=== PATIENT | male | born 1930 | race Caucasian/White ===

== ENCOUNTER 2017-01-18 22:55 | Emergency (ER) | payer OTHER, MEDICARE ==
[2017-01-18 23:01] VITALS: RESP 16; TEMP 97.5
--- NOTE | 2017-01-18 23:57 | EDPHY ---
H & P Time Seen by Provider: 01/18/17 23:14 HPI/ROS: Chief complaint: Right wrist pain History of present illness: This is an 86-year-old male who presents to the emergency department for right wrist pain. Patient reports the onset of symptoms this evening. He states they are slowly worsening. Pain is primarily on the top of his wrist. It is uncomfortable to move it. He denies precipitating factors such as trauma. He denies other associated signs or symptoms including no redness, no swelling, no warmth, no fevers. Further no report of abnormal coolness or paresthesias in the hand. 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 No other significant lesions or open wounds noted. Musculoskeletal: There is tenderness over the dorsum of the right wrist. The rest of the wrist including the snuffbox is nontender. The hand and forearm are nontender. He is moving all digits in the right hand without difficulty. Patient has discomfort extending his right wrist both with active and passive range of motion. Patient can actively move his wrist side to side and flex it and I can passively move it side to side and flex it without discomfort. Vascular: Radial pulses 2+. Capillary refill brisk in the digits of the right hand. Neurologic: Sensation intact throughout the right hand. Constitutional: Initial Vital Signs Temperature (C) 36.4 C 01/18/17 22:57 Heart Rate 87 01/18/17 22:57 Respiratory Rate 16 01/18/17 22:57 Blood Pressure 156/64 H 01/18/17 22:57 O2 Sat (%) 96 01/18/17 22:57 O2 Delivery Mode Room Air Allergies/Adverse Reactions: No Known Allergies Allergy (Verified 01/18/17 23:01) Home Medications: Medication Instructions Recorded Aspirin EC [Aspirin EC 81 mg (*)] 81 mg PO DAILY 08/29/16 Bevacizumab [Avastin] 5 mg IV Q14D 08/29/16 Clopidogrel Bisulfate [Plavix (*)] 75 mg PO DAILY 08/29/16 Denosumab [Prolia] 60 mg SQ 08/29/16 Dexlansoprazole [Dexilant] 30 mg PO DAILY 08/29/16 Supplements 08/29/16 Zytega 08/29/16 predniSONE 1 each PO 08/29/16 MDM/Departure - MDM Diagnostics: Imaging Impressions Wrist X-Ray 01/18/17 23:16 Impression: 1. Soft tissue swelling with no acute osseous findings. 2. 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 3. Atherosclerosis. ED Course/Re-evaluation: Patient seen under the supervision of my secondary supervising physician Dr. Dipak Prince. Patient presents to the emergency department for right wrist pain. The hand is neurovascularly intact. X-ray shows some soft tissue swelling with no fracture. This is likely a sprain or strain or contusion, patient is placed in a Velcro splint and referred to Orthopedics. I believe this is unlikely to be an arthropathy such as gout or septic joint given he has good movement in most clement without pain and no other physical exam findings such as erythema, edema or warmth. I have discussed home care with patient. He is given strict return precautions. Patient voiced understanding and agreement with plan. Differential Diagnosis: Included but not limited to contusion, sprain or strain, bony fracture, unlikely arthropathy such as gout or septic joint - Depart Disposition: Home, Routine, Self-Care Clinical Impression: Wrist pain Qualifiers: Laterality: right Qualified Code(s): M25.531 - Pain in right wrist Condition: Good Instructions: Arthralgia (ED) Additional Instructions: Follow-up with orthopedics for continued evaluation and care If symptoms worsen or new symptoms develop including developing redness, swelling, warmth, difficulty moving the wrist, fever or any other signs or symptoms return immediately to the emergency room Referrals: Sepideh Mckeon MD [Primary Care Provider] - As per Instructions Carol Romero MD [Medical Doctor] - As per Instructions
[2017-01-19 00:20] VITALS: BP 138/77; PULSE 68; O2SAT 95
== END 2017-01-19 00:18 | disposition home or self-care (01) ==
DX: M25.531 Pain in right wrist (principal); Z79.82 Long term (current) use of aspirin; Z87.891 Personal history of nicotine dependence

== ENCOUNTER → 2017-11-20 | Outpatient (CLI) | payer OTHER, MEDICARE | LOC: FIMAGING 14:08 | PROVIDERS: ATTEND Family Medicine | DX: R59.0 Localized enlarged lymph nodes (principal) ==

== ENCOUNTER → 2017-12-04 | Outpatient (CLI) | payer OTHER, MEDICARE ==
[~2017-12-04] MED LIST: IOPAMIDOL (ISOVUE-300) 100 ML BTL ONE
== END ==
LOC: FIMAGING 09:23
PROVIDERS: ATTEND Family Medicine
DX: J98.09 Other diseases of bronchus, not elsewhere classified (principal); I51.7 Cardiomegaly; I25.10 Atherosclerotic heart disease of native coronary artery without angina pectoris; K44.9 Diaphragmatic hernia without obstruction or gangrene; E04.1 Nontoxic single thyroid nodule
CPT/HCPCS: 71260; Q9967

== ENCOUNTER 2018-08-27 17:13 | Inpatient (IN) | payer OTHER, MEDICARE ==
[2018-08-27] MEDS ORDERED: NS 1,000 ML IV ONE ×2 (17:55→19:42)
[2018-08-27] MEDS ORDERED: ONDANSETRON 4 MG/2 ML VIAL IVP ONE (17:55)
--- NOTE | 2018-08-27 18:01 | EDPHY ---
H & P Stated Complaint: c/o ongoing exhaustion/weakness 2-3 wks, vomited 1x today Time Seen by Provider: 08/27/18 17:47 HPI/ROS: CHIEF COMPLAINT: Weakness, fatigue, not eating HISTORY OF PRESENT ILLNESS: The patient is an 88-year-old man visiting from [place] with his . He has a history of prostate cancer without metastasis. He they report that he has been exhausted and weak for the last 3-4 weeks. He has been diagnosed with dehydration several times as well as chronic anemia. He reports feeling excessively weak today and that it is even too much effort to eat. He had a single episode of vomiting around 8:00 a.m. This morning that states was food after he tried to eat breakfast. He then went to sleep and slept until now. His tried to get him to eat but he states that he is too tired to eat. The patient denies having any pain. He has been having normal bowel movements. He denies chest pain or shortness of breath although he is slightly hypoxic. He states that he wears oxygen at night but has been wearing it during the day over the last couple of weeks because he has been so tired. No cough or shortness of breath. No headache. No focal weakness. Severity: Moderate Modifying factors: None REVIEW OF SYSTEMS: Constitutional: See HPI denies: chills, fever, recent injury EENTM: denies: blurred vision, double vision, nose congestion Respiratory: denies: cough, shortness of breath Cardiac: denies: chest pain, irregular heart rate, lightheadedness, palpitations Gastrointestinal/Abdominal: See HPI Genitourinary: denies: dysuria, frequency, hematuria, pain Musculoskeletal: denies: joint pain, muscle pain Skin: denies: lesions, rash, jaundice, bruising Neurological: denies: headache, numbness, paresthesia, tingling, dizziness, weakness Hematologic/Lymphatic: denies: blood clots, easy bleeding, easy bruising Immunologic/allergic: denies: HIV/AIDS, transplant 10 systems reviewed and negative except as noted EXAM: GENERAL: Dry, weak HEAD: Atraumatic, normocephalic. EYES: Pupils equal round and reactive to light, extraocular movements intact, sclera anicteric, conjunctiva are normal. ENT: TMs normal, nares patent, oropharynx clear without exudates. Dry mucous membranes NECK: Normal range of motion, supple without lymphadenopathy or JVD. LUNGS: Breath sounds clear to auscultation bilaterally and equal. No wheezes rales or rhonchi. HEART: Regular rate and rhythm without murmurs, rubs or gallops. ABDOMEN: Slightly descended, nontender, normoactive bowel sounds. No guarding , no rebound. No masses appreciated. BACK: No CVA tenderness, no spinal tenderness, step-offs or deformities EXTREMITIES: Normal range of motion, no pitting or edema. No clubbing or cyanosis. NEUROLOGICAL: Cranial nerves II through XII grossly intact. Normal speech, normal gait. 5/5 strength, normal movement in all extremities, normal sensation , normal reflexes PSYCH: Normal mood, normal affect. SKIN: Tenting, no visible rashes or lesions. Source: Patient Exam Limitations: No limitations - Medical/Surgical History Hx Asthma: No Hx Chronic Respiratory Disease: No Hx Diabetes: No Hx Cardiac Disease: Yes Hx Renal Disease: No Hx Cirrhosis: No Hx Alcoholism: No Hx HIV/AIDS: No Hx Splenectomy or Spleen Trauma: No Other PMH: stent x2, hyperlipidemia, anemia, gerd, h-pylori, htn, macular degenration, prostate CA - Family History Significant Family History: No pertinent family hx - Social History Smoking Status: Former smoker Alcohol Use: Sober Drug Use: None Constitutional: Initial Vital Signs Temperature (C) 37.2 C 08/27/18 17:37 Heart Rate 82 08/27/18 17:37 Respiratory Rate 18 08/27/18 17:37 Blood Pressure 135/62 H 08/27/18 17:37 O2 Sat (%) 91 L 08/27/18 17:37 O2 Delivery Mode Nasal Cannula O2 (L/minute) 2 Allergies/Adverse Reactions: No Known Allergies Allergy (Verified 08/27/18 17:42) Home Medications: Medication Instructions Recorded Abiraterone Acetate [Zytiga] 1,000 mg PO DAILY 08/27/18 Albuterol [Proventil Inhaler HFA 2 puffs IH Q4 PRN 08/27/18 (*)] Aspirin EC [Aspirin EC 81 mg (*)] 81 mg PO DAILY 08/27/18 Atorvastatin Calcium [Lipitor 40 40 mg PO DAILY 08/27/18 mg (*)] Calcium Carbonate/Vitamin D3 1 each PO DAILY 08/27/18 [Calcium 500 + Vit D Caplet] Cyanocobalamin [Vitamin B12 (*)] 1,000 mcg PO DAILY 08/27/18 Denosumab [Prolia] 60 mg SQ [id number] 08/27/18 Dexlansoprazole [Dexilant] 60 mg PO DAILY 08/27/18 Escitalopram Oxalate [Lexapro] 10 mg PO DAILY 08/27/18 Eszopiclone [Eszopiclone] 3 mg PO HS PRN 08/27/18 Gabapentin [Neurontin 100 MG (*)] 100 mg PO TID 08/27/18 Herbals/Supplements -Info Only 1 ea PO DAILY 08/27/18 Losartan Potassium [Cozaar 50 mg 50 mg PO DAILY 08/27/18 (*)] Zolpidem Tartrate [Ambien 5MG (*)] 10 mg PO HS PRN 08/27/18 guaiFENesin [Mucinex 600 MG (*)] 1,200 mg PO BID 08/27/18 predniSONE [predniSONE] 10 mg PO DAILY 08/27/18 Fluticasone/Vilanterol [Breo 1 puffs IH DAILY 08/28/18 Ellipta 100-25 Mcg INH] Medical Decision Making - Diagnostics EKG Interpretation: An EKG obtained and was read and documented in trace view. Please see trace view for full reading and report. Sinus rhythm, no acute ischemic changes, similar to previous Imaging: Discussed imaging studies w/ cooling machine operator Radiologist ED Course/Re-evaluation: The patient is sleeping comfortably. He is saturating normally on 2 L of oxygen. His sats were 88% on arrival. X-ray is being done. He has not yet provided urinalysis. asked me why he keeps getting dehydrated. She states that this is his 3rd ER visit for dehydration. We discussed his prostate cancer status. She states that he was evaluated within the last 2 months and that his PSA level remains flat and that he had a CT scan of his abdomen that was negative. I suspect that he will require admission for failure to thrive if we do not find other source for his weakness. The patient's x-ray does show some retrocardiac atelectasis. The patient and his states that they have been told about this before. He does not have a fever or cough. He has slightly hypoxic at 88 on room air but is able to get his saturations up with deep breaths. He does not think that he has pneumonia. I will not treat him at this time. 8:30 p.m. I discussed the case with Dr. Torres who will admit the medical service. Differential Diagnosis: Partial list of the Differential diagnosis considered include but were not limited to; pneumonia, dehydration, failure to thrive, anorexia, urinary tract infection and although unlikely based on the history and physical exam, I also considered acute coronary disease, CVA. - Data Points Laboratory Results: Laboratory Results 08/27/18 17:58 08/27/18 17:58 Medications Given: Aspirin Buffered (Aspirin Ec) 81 mg PO DAILY LAURA Stop: 02/24/19 08:59 Last Admin: 08/28/18 09:15 Dose: 81 mg Atorvastatin Calcium (Lipitor) 40 mg PO DAILY LAURA Stop: 02/24/19 08:59 Last Admin: 08/28/18 09:15 Dose: 40 mg Escitalopram Oxalate (Lexapro) 10 mg PO DAILY LAURA Stop: 02/24/19 08:59 Last Admin: 08/28/18 09:15 Dose: 10 mg Guaifenesin (Mucinex) 1,200 mg PO BID LAURA Stop: 02/24/19 08:59 Last Admin: 08/28/18 09:12 Dose: 1,200 mg Sodium Chloride (Ns) 1,000 mls @ 100 mls/hr IV CONT LAURA Stop: 02/23/19 21:14 Last Admin: 08/28/18 09:11 Dose: 1,000 mls Ferric Sodium Gluconate Complex 125 mg/ Sodium Chloride 110 mls @ 110 mls/hr IV DAILY LAURA Stop: 02/24/19 09:59 Last Admin: 08/28/18 11:02 Dose: 110 mls Losartan Potassium (Cozaar) 50 mg PO DAILY LAURA Stop: 02/24/19 08:59 Last Admin: 08/28/18 09:15 Dose: 50 mg Miscellaneous Medication (Dexlansoprazole [Dexilant]) 60 mg PO DAILY LAURA Stop: 02/24/19 08:59 Last Admin: 08/28/18 12:26 Dose: 60 mg Miscellaneous Medication (Fluticasone/Vilanterol [Breo Ellipta 100-25 Mcg Inh]) 1 puffs IH DAILY LAURA Stop: 02/24/19 12:29 Last Admin: 08/28/18 14:14 Dose: 1 puffs Prednisone (Prednisone) 10 mg PO DAILY LAURA Stop: 02/24/19 08:59 Last Admin: 08/28/18 12:26 Dose: 10 mg Discontinued Medications Gabapentin (Neurontin) 100 mg PO TID LAURA Stop: 02/23/19 21:59 Last Admin: 08/28/18 09:17 Dose: Not Given Sodium Chloride (Ns) 1,000 mls @ 0 mls/hr IV EDNOW ONE; Wide Open PRN Reason: Protocol Stop: 08/27/18 17:56 Last Admin: 08/27/18 18:00 Dose: 1,000 mls Sodium Chloride (Ns) 1,000 mls @ 0 mls/hr IV EDNOW ONE; Wide Open PRN Reason: Protocol Stop: 08/27/18 19:43 Last Admin: 08/27/18 19:45 Dose: 1,000 mls Miscellaneous Medication (Abiraterone Acetate [Zytiga]) 1,000 mg PO DAILY LAURA Stop: 02/24/19 08:59 Last Admin: 08/28/18 12:17 Dose: Not Given Miscellaneous Medication (Fluticasone/Vilanterol [Breo Ellipta 200-25 Mcg Inh]) 1 puffs IH DAILY [facility] Stop: 02/24/19 08:59 Last Admin: 08/28/18 09:25 Dose: Not Given Ondansetron HCl (Zofran) 4 mg IVP EDNOW ONE Stop: 08/27/18 17:56 Last Admin: 08/27/18 18:01 Dose: 4 mg Pantoprazole Sodium (Protonix) 40 mg PO DAILY LAURA Stop: 02/24/19 10:29 Last Admin: 08/28/18 12:16 Dose: Not Given Departure - Departure Disposition: [facility] Clinical Impression: Dehydration, Failure to thrive in adult Condition: Fair
--- NOTE | 2018-08-27 18:06 | CPEKG ---
Test Reason : OPEN Blood Pressure : / mmHG Vent. Rate : 072 BPM Atrial Rate : 073 BPM P-R Int : 147 ms QRS Dur : 084 ms QT Int : 385 ms P-R-T Axes : 049 086 055 degrees QTc Int : 422 ms Sinus rhythm Borderline right axis deviation Confirmed by Kp Marcelo ([id number]) on 08/27/2018 6:06:32 PM Referred By: Confirmed By:Kp Marcelo
[2018-08-27 18:07] LABS: PLATELET COUNT 131 10^3/uL (150-400)
[2018-08-27 18:17] LABS: INR 1.05 (0.83-1.16); PROTIME(PATIENT) 13.9 SEC (12.0-15.0)
[2018-08-27] MEDS ORDERED: ALBUTEROL 60 PUFFS/8 GM MDI IH PRN (21:09)
[2018-08-27] MEDS ORDERED: ESZOPICLONE 3 MG PO PRN (21:09)
--- NOTE | 2018-08-27 21:35 | GHP ---
DATE OF ADMISSION: 08/27/2018 CHIEF COMPLAINT: Weakness. HISTORY OF PRESENT ILLNESS: This is an 88-year-old man with a history of prostate cancer who present s with weakness. He has had multiple visits to the ED in various places over the past month for this . He tells me that this morning he threw up, he has not had any appetite, he feels very dehydrated. He presents to the ED with labs and physical findings consistent with this. Notably, he was hospita lized about a month ago at [facility] when he was visiting his children in [place]. There they f ound questionable pathology with his gallbladder, though no cholecystectomy was undertaken. He was t old he had gallbladder sludge, though not cholecystitis. He is unsure if he had a HIDA scan. Since then, he has been to the emergency department 2 times in [place] for dehydration. He has received hydr ation there and been sent home. He saw Dr. Downey, his oncologist, recently. He was told that his cancer is under control. PAST MEDICAL/SURGICAL HISTORY: 1. Prostate cancer. 2. Low-grade leukemia. 3. Coronary artery disease, status post PCI. MEDICATIONS: Please see medication reconciliation. ALLERGIES: No known drug allergies. SOCIAL HISTORY: He lives in [place]. He is accompanied by his . FAMILY HISTORY: Reviewed and noncontributory. REVIEW OF SYSTEMS: A 10-point review of systems is conducted and is negative except per HPI. PHYSICAL EXAM: VITAL SIGNS: Blood pressure 124/69, heart rate 69, respiration rate 18, satting 97% on 2 L, temperature is 37.2. GENERAL: The patient is a pleasant man, who appears tired, but otherwi se, in no acute distress. HEENT: Exam shows him to be normocephalic, atraumatic. CARDIOVASCULAR: Exam shows a regular rate and rhythm. There are no murmurs, rubs, or gallops. PULMONARY: Exam show s lungs are clear to auscultation bilaterally. ABDOMEN: Exam is soft. He is mildly diffusely tende r to palpation. There is no clear Lugo sign. SKIN: Exam shows no rash. : Exam shows no Lacy . NEUROLOGIC: Exam shows him to be alert and oriented x3. He is moving all extremities. PSYCHIATR IC: Exam shows a normal mood and affect. LABS: White count is 10, hemoglobin is 10.8, platelets are 131. INR is 1.0. Lactate is 1.0, creati nine is 1.6, BUN is 25, alk phos is 134, bilirubin is 0.8. Urinalysis is negative. DATA: 1. Discussed with Dr. Marcelo, will admit to med/surg. 2. I personally viewed and interpreted his chest x-ray. This shows what is likely atelectasis. I personally viewed and interpreted his EKG. This shows sinus rhythm. There is nothing acutely isch emic. IMPRESSION AND PLAN: 1. Weakness/dehydration: Clinically, he is dehydrated. We will provide him IV hydration and follow his symptoms. We will look for a cause as below. 2. Acute kidney injury: This is likely pre renal. We will recheck his creatinine in the morning. 3. Concern for gallbladder pathology: He reports abnormal imaging studies at [facility], though h e did not receive a cholecystectomy. He has a mildly elevated alkaline phosphatase. At this point, we will check an ultrasound to rule out acute cholecystitis, which I doubt. We will also check a HID A scan to look for chronic cholecystitis. This may be the precipitant of his recurrent weakness and dehydration. He did have an episode of emesis this morning as well. 4. Left leg edema: He reports that this is chronic. He had an ultrasound at [facility], which wa s negative. 5. His will try to bring in a CAT scan from [facility]. If he has not had one, I think it is reasonable to obtain one here. 6. We will attempt to obtain his records from [facility]. 7. Coronary artery disease: He is not having any chest pain. We will continue his aspirin and stat in. 8. Code status: He would like to be full code/full tube, though he does not want heroic measures. 9. Venous thromboembolism risk: He is moderate to high, although given possible procedures, we will hold prophylaxis for now. /[id number]/MODL
[2018-08-27] MEDS: NS 1,000 ML IV SCH (23:21)
[2018-08-27] MEDS: GABAPENTIN 100 MG CAP PO SCH (23:21)
[2018-08-28 04:53] LABS: PLATELET COUNT 103 10^3/uL (150-400)
[2018-08-28] MEDS ORDERED: ASPIRIN EC 81 MG TAB PO SCH (09:00)
[2018-08-28] MEDS ORDERED: VILANTEROL IH SCH (09:00)
[2018-08-28] MEDS ORDERED: FLUTICASONE IH SCH (09:00)
[2018-08-28] MEDS ORDERED: NON-FORMULARY NEW DRUG (Abiraterone Acetate [Zytiga] 1,000 MG) PO SCH (09:00)
[2018-08-28] MEDS: NS 1,000 ML IV SCH (09:11)
[2018-08-28] MEDS: guaiFENesin 600 MG TAB.ER PO SCH ×2 (09:12→21:50)
[2018-08-28] MEDS: ESCITALOPRAM OXALATE 10 MG TAB PO SCH (09:15)
[2018-08-28] MEDS: ATORVASTATIN CALCIUM 40 MG TAB PO SCH (09:15)
[2018-08-28] MEDS: LOSARTAN POTASSIUM 50 MG TAB PO SCH (09:15)
[2018-08-28] MEDS: GABAPENTIN 100 MG CAP PO SCH (09:17)
--- NOTE | 2018-08-28 09:20 | HOSPPROG ---
Hospitalist Progress Note Assessment/Plan: [facility] Patient Name: JON SADLER Rpt#: [id number] Unit Number: [id number] Attending/ER Physician: Soy Torres MD Patient Type: ADM Sushma Adm Date/Source: 08/27/18 EMR Discharge Date: Primary Carrier: MEDICARE OUTPATIENT Patient is an 88 y/o male who has a hx of prostate ca who presented w weakness. He was recently hospitalized at [facility] when he was visiting his children in [place]. He has been to the ER twice in [place] for dehydration. First encounter, chart reviewed. *weakness and dehydration -treated w fluids *acute kidney injury -resolved *anemia, thrombocytopenia -lower than his baseline -will hold asa -has had IV iron in the past -will check iron studies, give IV iron and heme his stools *hx of prostate ca -sees Dr Downey *concerns for gallbladder issues -ultrasound shows nothing acute -HIDA scan ordered to check for chronic cholecystitis, check EF -he has had 3 admissions recently for no appetite and feeling poorly *Left leg edema that is chronic -will evacuate his studies form [facility] *CAD -asa & statin *plan: Mr Sadler continues to feel very poorly, has been unable to eat much, feels exhausted and is anemic. Will f/u with HIDA scan, heme stools, if continues to be anemic, will ask GI to further evaluate. He will require another midnight stay for further w/u of all the above. This will make him IP. Subjective: Jon said he has been feeling weak and tired. Objective: Vital Signs Temp Pulse Resp BP Pulse Ox 37.8 C 71 18 120/53 L 96 08/28/18 08:00 08/28/18 08:00 08/28/18 08:00 08/28/18 09:15 08/28/18 08:00 Laboratory Results 08/28/18 04:37 08/28/18 04:37 08/27/18 08/28/18 08/29/18 05:59 05:59 05:59 Intake Total 688 239 Output Total 200 200 Balance 488 39 PT 13.9 SEC (12.0-15.0) 08/27/18 17:58 INR 1.05 (0.83-1.16) 08/27/18 17:58 - Physical Exam Constitutional: chronically ill appearing, uncomfortable Eyes: PERRL Ears, Nose, Mouth, Throat: hearing normal Cardiovascular: regular rate and rhythym Respiratory: no respiratory distress Gastrointestinal: normoactive bowel sounds, soft, non-tender abdomen Skin: warm, No normal color (pale) Neurologic: AAOx3 Psychiatric: interacting appropriately ICD10 Worksheet Patient Problems: Problems Problem Status Onset Dehydration Acute Failure to thrive in adult Acute
[2018-08-28] MEDS ORDERED: PANTOPRAZOLE SODIUM 40 MG TAB PO SCH (10:30)
--- NOTE | 2018-08-28 10:35 | ASMTCMCOM ---
CM Note CM Note Notes: Pt admitted to hospital for nausea, weakness. Was hospitalizes in [place] last month when visiting his children. Pt normally lives in [place] with his . PUBLICITY CONSULTANT concerned for issues with pt's gallbladder, dc TBD. DC Plan: TBD Date Signed: 08/28/2018 10:34 AM Electronically Signed By:Cassie Colon RN
[2018-08-28] MEDS: SODIUM FERRIC GLUCONAT/SUCROSE 125 MG in NS 100 ML IV SCH (11:02)
[2018-08-28] MEDS: Dexlansoprazole [Dexilant] 60 MG PO SCH (12:26)
[2018-08-28] MEDS: predniSONE 10 MG TAB PO SCH (12:26)
[2018-08-28] MEDS ORDERED: Abiraterone Acetate [Zytiga] PO SCH (14:00)
[2018-08-28] MEDS: Fluticasone/Vilanterol [Breo Ellipta 100-25 Mcg Inh] 1 PUFFS IH SCH (14:14)
[2018-08-28] MEDS: ACETAMINOPHEN 325 MG TAB PO PRN (15:31)
[2018-08-28] MEDS ORDERED: SINCALIDE 5 MCG VIAL IV ONE (15:54)
[2018-08-28] MEDS: PANTOPRAZOLE SODIUM 40 MG VIAL IVP SCH ×2 (17:36→21:50)
[2018-08-28] MEDS: ABIRATERONE 250 MG PO SCH (21:50)
[2018-08-28] MEDS: ZOLPIDEM TARTRATE 5 MG TAB PO PRN (23:55)
[2018-08-29 05:22] LABS: PLATELET COUNT 113 10^3/uL (150-400)
--- NOTE | 2018-08-29 06:56 | PDMN ---
Medical Necessity Medical necessity: Pt meets INPT criteria per MD as of 08/28/18 and MCG Systemic or Infectious Condition GRG (LOS >2 MN for ongoing eval/mgmt of weakness and dehydration treated with IV fluids, GENESIS, anemia, thrombocytopenia, concern for gallbladder issues; hx prostate cancer, CAD).
[2018-08-29] MEDS: Fluticasone/Vilanterol [Breo Ellipta 100-25 Mcg Inh] 1 PUFFS IH SCH (08:54)
[2018-08-29] MEDS: ATORVASTATIN CALCIUM 40 MG TAB PO SCH (09:10)
[2018-08-29] MEDS: LOSARTAN POTASSIUM 50 MG TAB PO SCH (09:13)
[2018-08-29] MEDS: guaiFENesin 600 MG TAB.ER PO SCH ×2 (09:13→21:18)
[2018-08-29] MEDS: ESCITALOPRAM OXALATE 10 MG TAB PO SCH (09:13)
[2018-08-29] MEDS: predniSONE 10 MG TAB PO SCH (09:14)
[2018-08-29] MEDS: ABIRATERONE 250 MG PO SCH ×2 (09:18→22:39)
[2018-08-29] MEDS: Dexlansoprazole [Dexilant] 60 MG PO SCH (09:18)
[2018-08-29] MEDS: PANTOPRAZOLE SODIUM 40 MG VIAL IVP SCH (09:26)
[2018-08-29] MEDS: SODIUM FERRIC GLUCONAT/SUCROSE 125 MG in NS 100 ML IV SCH (09:28)
--- NOTE | 2018-08-29 09:35 | HOSPPROG ---
Hospitalist Progress Note Assessment/Plan: [facility] Patient Name: JON SADLER Rpt#: [id number] Unit Number: [id number] Attending/ER Physician: Soy Torres MD Patient Type: ADM Sushma Adm Date/Source: 08/27/18 EMR Discharge Date: Primary Carrier: MEDICARE OUTPATIENT Patient is an 88 y/o male who has a hx of prostate ca, leukemia who presented w weakness. He was recently hospitalized at [facility] when he was visiting his children in [place]. He has been to the ER twice in [place] for dehydration. After obtaining more information from the patient and his ; he was at [facility] end of July, early August w c/o fatigue, he had an ultrasound there which showed gallbladder thickening w high LFT's concerning of cholecystitis. MRCP done at that time was unrevealing, his LFT's improved. He was noted to be bacteremic w gram negative rods and treated w Zosyn during his hospital stay. He was dc on cipro and Metronidazole for a total of 14 days of treatment. Today the patient shares he has had ongoing diarrhea at home and has been taking Imodium without significant relief. Had a loose stool today but nothing significant. *weakness and dehydration -treated w fluids *fever -w recent treatment of bacteremia, will check now blood cultures -will check ua since he had an e coli bacgeremia *acute kidney injury -resolved *iron deficiency anemia, thrombocytopenia -lower than his baseline -will hold asa -IV iron -GI to see to scope *hx of prostate ca & leukemia -this could be another etiology of his weakness but will first address other issues -sees Dr Downey *concerns for gallbladder issues -ultrasound shows nothing acute -HIDA scan shows nothing acute w a good EF *Left leg edema that is chronic *diarrhea -had a loose stool today -if he has ongoing loose stools, will check for c diff in the setting of recent abx *CAD -asa & statin *plan: to get a scope w Dr Real today, cont IV iron infusion, get a stool sample only if it is very loose and check for c diff, check blood cx now Subjective: Jon is exhausted, has no energy. Objective: Vital Signs Temp Pulse Resp BP Pulse Ox 36.5 C 84 12 157/62 H 94 08/29/18 08:00 08/29/18 08:54 08/29/18 08:54 08/29/18 08:00 08/29/18 08:54 Laboratory Results 08/29/18 04:35 08/29/18 04:35 08/28/18 08/29/18 08/30/18 05:59 05:59 05:59 Intake Total 910 Output Total 300 175 Balance 610 -175 PT 13.9 SEC (12.0-15.0) 08/27/18 17:58 INR 1.05 (0.83-1.16) 08/27/18 17:58 - Physical Exam Constitutional: not in pain, chronically ill appearing Eyes: PERRL Ears, Nose, Mouth, Throat: hearing normal Cardiovascular: regular rate and rhythym Respiratory: no respiratory distress Gastrointestinal: other (large spleen) Skin: warm Musculoskeletal: generalized weakness Neurologic: AAOx3 Psychiatric: interacting appropriately ICD10 Worksheet Patient Problems: Problems Problem Status Onset Dehydration Acute Failure to thrive in adult Acute
[2018-08-29] MEDS: NS 1,000 ML IV SCH (09:43)
[2018-08-29] MEDS: ACETAMINOPHEN 325 MG TAB PO PRN (10:39)
[2018-08-29] MEDS ORDERED: PROPOFOL 200 MG/20 ML VIAL ONE ×2 (12:46)
--- NOTE | 2018-08-29 12:50 | PDANEPAE ---
ANE History of Present Illness failure to thrive, anemia ANE Past Medical History - Cardiovascular History Hx Hypertension: Yes Hx Arrhythmias: No Hx Coronary Artery / Peripheral Vascular Disease: Yes Hx CHF / Valvular Disease: No Hx Palpitations: No Cardiovascular History Comment: CAD s/p stents 3 years ago. As per patient recent evaluation by health care law specialist with no problems. - Pulmonary History Hx COPD: No Hx Asthma/Reactive Airway Disease: No Hx Recent Upper Respiratory Infection: No Hx Oxygen in Use at Home: Yes O2 in Use at Home (L/minute): 2L HS Hx Sleep Apnea: Yes Sleep Apnea Screening Result - Last Documented: Positive - Endocrine History Hx Diabetes: No Hypothyroid: No Hyperthyroid: No Obesity: no - Renal History Hx Renal Disorders: Yes Renal History Comment: Pre-renal ARF on admission. Now resolved. - Liver History Hepatic History Comment: Elevated LFTs on admission. Now resolving. H/o of elevated LFTs, thought to be 2/2 gallbladder pathology. So far negative w/u - Neurological & Psychiatric Hx Hx Neurological and Psychiatric Disorders: No - Cancer History Hx Cancer: Yes Cancer History Comment: h/o Prostate Ca - GI History GERD: mild Hx Gastrointestinal Disorders: Yes Gastrointestinal History Comment: recent N/V, recent diarrhea and bloody and black stool ANE Review of Systems Review of Systems: - Exercise capacity Exercise capacity: >=4 METS ANE Patient History - Allergies Allergies/Adverse Reactions: No Known Allergies Allergy (Verified 08/27/18 17:42) - Home Medications Home Medications: Abiraterone Acetate [Zytiga] 500 mg PO BID 08/27/18 [Last Taken 08/27/18] Albuterol [Proventil Inhaler HFA (*)] 2 puffs IH Q4 PRN 08/27/18 [Last Taken Unknown] Aspirin EC [Aspirin EC 81 mg (*)] 81 mg PO DAILY 08/27/18 [Last Taken 08/27/18] Atorvastatin Calcium [Lipitor 40 mg (*)] 40 mg PO DAILY 08/27/18 [Last Taken ] Calcium Carbonate/Vitamin D3 [Calcium 500 + Vit D Caplet] 1 each PO DAILY [Last Taken Unknown] Cyanocobalamin [Vitamin B12 (*)] 1,000 mcg PO DAILY 08/27/18 [Last Taken ] Denosumab [Prolia] 60 mg SQ [id number] 08/27/18 [Last Taken Unknown] Dexlansoprazole [Dexilant] 60 mg PO DAILY 08/27/18 [Last Taken 08/27/18] Escitalopram Oxalate [Lexapro] 10 mg PO DAILY 08/27/18 [Last Taken Unknown] Eszopiclone [Eszopiclone] 3 mg PO HS PRN 08/27/18 [Last Taken Unknown] Gabapentin [Neurontin 100 MG (*)] 100 mg PO TID 08/27/18 [Last Taken 08/27/18] Herbals/Supplements -Info Only 1 ea PO DAILY 08/27/18 [Last Taken Unknown] Losartan Potassium [Cozaar 50 mg (*)] 50 mg PO DAILY 08/27/18 [Last Taken ] Zolpidem Tartrate [Ambien 5MG (*)] 10 mg PO HS PRN 08/27/18 [Last Taken Unknown] guaiFENesin [Mucinex 600 MG (*)] 1,200 mg PO BID 08/27/18 [Last Taken 08/27/18] predniSONE [predniSONE] 10 mg PO DAILY 08/27/18 [Last Taken 08/27/18] Fluticasone/Vilanterol [Breo Ellipta 100-25 Mcg INH] 1 puffs IH DAILY 08/28/18 [ Last Taken 08/27/18] - NPO status NPO Since - Liquids (Date): 08/29/18 NPO Since - Liquids (Time): 00:00 NPO Since - Solids (Date): 08/29/18 NPO Since - Solids (Time): 00:00 - Anes Hx Anes Hx: no prior problems - Smoking Hx Smoking Status: Former smoker - Alcohol Use Alcohol Use: Sober - Family Anes Hx Family Anes Hx: none ANE Labs/Vital Signs - Labs Result Diagrams: 08/29/18 04:35 08/29/18 04:35 - Vital Signs Blood Pressure: 100/49 Heart Rate: 76 Respiratory Rate: 18 O2 Sat (%): 94 Height: 172.72 cm Weight: 67.132 kg ANE Physical Exam - Airway Neck exam: FROM Mallampati Score: Class 2 Mouth exam: normal dental/mouth exam - Pulmonary Pulmonary: no respiratory distress - Cardiovascular Cardiovascular: regular rate and rhythym - ASA Status ASA Status: III, E ANE Anesthesia Plan Anesthesia Plan: GA with mask Total IV Anesthesia: Yes
[2018-08-29] MEDS ORDERED: ePHEDrine SULFATE 25 MG/5 ML SYR ONE (13:13)
[2018-08-29] MEDS ORDERED: PHENYLEPHRINE HCL 100 MCG/ML SYR ONE (13:13)
--- NOTE | 2018-08-29 13:35 | GIREPORT ---
[facility] - Endoscopy Department Patient Name: Jon Ruiz Procedure Date: 08/29/2018 12:23 PM Patient Type: Inpatient Attending MD/ ER Physician: Mitra Lazar Procedure: Upper GI endoscopy Indications: Iron deficiency anemia due to suspected upper gastrointestinal bleeding Providers: Guillermo Real MD Referring MD: Erica Felton MD Medicines: Propofol per Anesthesia = IV general with spontaneous respirations Complications: No immediate complications. Estimated blood loss: Minimal. Description of Procedure: After obtaining informed consent, the endoscope was passed under direct vision. Throughout the procedure, the patient's blood pressure, pulse, and oxygen saturations were monitored continuously. The Endoscope was intro duced through the mouth, and advanced to the third part of duodenum. The uppe r GI endoscopy was accomplished without difficulty. The patient tolerated th e procedure well. Findings: Multiple small plaques were found in the lower third of the esophagus. Biopsies were taken with a cold forceps for histology. Estimated blood loss was minimal. A few dispersed, small non-bleeding erosions were found in the gastric body. There were no stigmata of recent bleeding. Biopsies were taken with a c old forceps for histology. Estimated blood loss was minimal. Diffuse mildly erythematous mucosa without bleeding was found in the ga stric antrum. Biopsies were taken with a cold forceps for histology. Estimate d blood loss was minimal. Diffuse mild mucosal variance characterized by discoloration and puncta loc white spots was found in the entire duodenum. Biopsies were taken with a cold forceps for histology. Estimated blood loss was minimal. The exam was otherwise without abnormality. Estimated Blood Loss: Estimated blood loss was minimal. Post Op Diagnosis: - Multiple plaques in the lower third of the esophagus. Biopsied. Query dried food that was adherent to mucosa? - Non-bleeding erosive gastropathy. Biopsied. This could be the cause o f his anemia and decreased appetite - Erythematous mucosa in the antrum. Biopsied. - Mucosal variant in the duodenum. Biopsied. - The examination was otherwise normal. Recommendation: - Await pathology results. - My office will call with the pathology result with 5-7 days. If you h ave not heard from my office by 14, do not assume the pathology is rolo l, please call [phone] to get the pathology results. - Use Protonix (pantoprazole) 40 mg PO daily. Take 30-60 minutes before breakfast. Can be BID while in hospital until improving, then down to o nce daily. - Use Zantac (ranitidine) 300 mg PO at bedtime for 4 weeks. If he has increased symptoms when he stops, can restart and taper as symptoms all ow. - Return patient to [facility] for ongoing care. - Thank you for allowing me to help in your patient's care. Do not hesi roblero to call with any questions. Attending Participation: I personally performed the entire procedure. Farhan Avery M.D Bennie Real MD 08/29/2018 1:35:35 PM This report has been signed electronicallyMathew MD Farhan Number of Addenda: 0 Note Initiated On: 08/29/2018 12:23 PM [email or web address]
[2018-08-29] MEDS ORDERED: PHENYLEPHRINE HCL 100 MCG/ML SYR IVP PRN (13:41)
[2018-08-29] MEDS ORDERED: ONDANSETRON 4 MG/2 ML VIAL IVP PRN (13:41)
[2018-08-29] MEDS ORDERED: METOCLOPRAMIDE 10 MG/2 ML VIAL IVP PRN (13:41)
[2018-08-29] MEDS ORDERED: NS 500 ML IV PRN (13:41)
--- NOTE | 2018-08-29 13:41 | POSTANESTH ---
Post Anesthetic Evaluation Cardiovascular Status: Normal, Stable, Similar to Pre-Op Cond, Tx Hyper/Hypo- tension (low BP prior to procedure. most likely hypovolemic) Respiratory Status: Normal, Stable Level of Consciousness/Mental Status: Can Participate in Eval Pain Control: Adequate, Prn Tx Ordered Nausea/Vomiting Control: Adequate, Prn Tx Ordered Complications Possibly Related to Anesthesia: None Noted
[2018-08-29] MEDS ORDERED: PROTOCOL CALCIUM 1 DOSE IV PRN (14:46)
[2018-08-29] MEDS: VANCOMYCIN 125 MG/2.5 ML UDL PO SCH ×2 (15:40→21:18)
--- NOTE | 2018-08-29 16:30 | ASMTCMCOM ---
CM Note CM Note Notes: Asked by pt's RN to speak with pt's who is exhausted by recent admissions and pt's health difficulties. now relieved to have a diagnosis and anticipates pt will become stronger and be able to discharge independently. Therapies ordered today for eval to make sure. aware she can reach out to CM as needed. CM to follow. D/C Plan: Independent pending therapy eval. Date Signed: 08/29/2018 04:29 PM Electronically Signed By:Jaida Fried
--- NOTE | 2018-08-29 16:35 | SOAPPROG ---
SOAP Progress Note Assessment/Plan: Assessment:Plan: see full consult dictated I see he is c diff + -- this could explain a lot of his sx's PO vanco order will decrease PPI to once daily 08/29/18 16:33 Objective: Vital Signs Temp Pulse Resp BP Pulse Ox 36.6 C 72 17 99/49 L 98 08/29/18 15:27 08/29/18 15:27 08/29/18 15:27 08/29/18 15:27 08/29/18 15:27 Laboratory Results 08/29/18 04:35 08/29/18 04:35 08/28/18 08/29/18 08/30/18 05:59 05:59 05:59 Intake Total 910 200 Output Total 300 175 Balance 610 25 PT 13.9 SEC (12.0-15.0) 08/27/18 17:58 INR 1.05 (0.83-1.16) 08/27/18 17:58 ICD10 Worksheet Patient Problems: Problems Problem Status Onset Dehydration Acute Failure to thrive in adult Acute
[2018-08-29] MEDS ORDERED: CALCIUM GLUCONATE 50 ML IV ONE (16:37)
--- NOTE | 2018-08-29 19:15 | GCON ---
DATE OF CONSULTATION: 08/29/2018 REFERRING PHYSICIAN: Anum Soares NP INDICATION FOR CONSULTATION: For anemia related to blood loss, elevated BUN and creatinine, decrease d output, all consistent with upper GI source. HPI: The patient is a pleasant 88-year-old male who has past medical history significant for prostat e cancer, low-grade leukemia, coronary artery disease, who has had some GI symptoms over the last num jamie of months. He has presented to the ER for a number of times with nausea, vomiting, decreased hua etite. Recently, he was hospitalized in [facility] in [place] when he was visiting his children, and the discharge summary suggests that he might have had a cholangitis. At that point, he had an u ltrasound show gallbladder wall thickening, gallbladder sludge, and he had elevated liver function te st. Blood cultures from July 27 grew out E coli that were both sensitive to Cipro and metronida zole. The subsequent blood cultures were negative. He had an MRCP that was ordered that did not rev eal any obstructing lesion in his bile duct and it was felt that he might have passed some sludge or bile stone that caused his cholangitis. He was treated with Cipro and Flagyl for a complete 14-day c ourse after he was initially treated with Zosyn in hospital. I did contact [facility] and I found out that the bacteria was E coli and it was sensitive to both Cipro and metronidazole. He has ross nued to have difficulty at home. He has been to the ER a few times in [place] for dehydration and bladimir use of the continued symptoms, they brought him in for evaluation. Since he has been in the hospital , he was noted to have a somewhat decreased hemoglobin and hematocrit, elevated BUN, creatinine level , and stool occult blood was positive. He has had continued loose black stools multiple times a day, although he denies any fevers, chills, or sweats. He does have an iron-deficiency anemia. His live r enzymes are normal and laboratory data which were reviewed below. So was his sonogram and HIDA sca n. He is now admitted with the above, and I am called to help and evaluate in that regard. PAST MEDICAL/SURGICAL HISTORY: Prostate cancer status post radiation, low-grade leukemia, coronary a rtery disease status post stenting. CURRENT MEDICATIONS: In hospital include Tylenol p.r.n., albuterol 2 puffs q. 4, aspirin 81 mg daily , Lipitor 40 mg daily, calcium gluconate p.r.n., Lexapro 10 mg daily, ferric sodium gluconate 125 mg IV, Mucinex 1200 mg p.o. b.i.d., Cozaar 50 mg daily, Zofran p.r.n., Protonix 40 mg p.o. b.i.d., predn isone 10 mg daily, Ambien 10 mg p.o. q.h.s. ALLERGIES: No known drug allergies. SOCIAL HISTORY: He lives in [place]. His and son are with him. He does not smoke or drink. FAMILY HISTORY: No GI malignancies to his knowledge. REVIEW OF SYSTEMS: A complete review of systems was performed and was negative other than noted in t he HPI. PHYSICAL EXAM: GENERAL: Chronically ill-appearing, elderly male sitting in his bed in no acute dist ress. VITAL SIGNS: His blood pressure is 100/49. Pulse is 76, respirations 18. He is 94% on 4 L n estefany cannula. Temperature 37.0. EYES: Anicteric. SAMUEL, EOMI. MOUTH: No lesions. Moist mucous m embranes. NECK: Supple. Full range of motion. No JVD. BACK: No spine tenderness. No CVA tender ness. LUNGS: Clear. CARDIAC: S1, S2. Regular rate and rhythm. ABDOMEN: Bowel sounds are normal pitch and frequency. ABDOMEN: Soft. Mild epigastric tenderness. No rebound or guarding. EXTREMI TIES: No cyanosis, clubbing, or edema. NEUROLOGIC: Cranial nerves intact, nonfocal. SKIN: No sti gmata of advanced liver disease. LABORATORY DATA: From today, sodium 137, potassium 4.7, chloride 112, bicarb 21, BUN 17, creatinine 1.2, glucose 116, calcium 6.9, ionized calcium 0.98. Iron 17, TIBC 201, iron sat 8, ferritin 195. F rom yesterday, a bilirubin 0.4, AST 17, ALT 28, alkaline phosphatase 90, albumin 2.3, total protein 4 .3. From today, WBC 8.95, hemoglobin 9.3, hematocrit 29.6, platelet count 113. From the , pro t aron 13.9, INR 1.05, PTT 26.3. IMAGING DATA: An abdominal ultrasound performed August 27: Normal sonographic-appearing biliary system, normal gallbladder, no bowel, no wall thickening, no bile duct dilatation, parapelvic cyst, right renal hilum. A HIDA scan performed August 28 was a normal HIDA scan with ejection fraction of 39%. ASSESSMENT: 1. Anemia, likely related to GI blood loss. 2. Elevated BUN, creatinine level. 3. Hemoccult-positive stool. 4. Diarrhea, possibly infectious. 5. Coronary artery disease status post stents. RECOMMENDATIONS: 1. Proceed with EGD for evaluation of presumed upper GI blood loss with gastritis, esophagitis likel y. 2. Follow up laboratories and stool samples. 3. Further recommendations to follow the results of the above and clinical course. This will be a higher risk procedure than normal given the patient's multiple medical issues. I will ask Anesthesia to perform the sedation to make it a safe procedure. Thank you for allowing me to participate in the patient's healthcare. Do not hesitate to call me wit h any questions. /[id number]/MODL
[2018-08-29] MEDS ORDERED: PANTOPRAZOLE SODIUM 40 MG TAB PO SCH (21:00)
[2018-08-29] MEDS: ESZOPICLONE 3 MG PO PRN (22:39)
[2018-08-30] MEDS: VANCOMYCIN 125 MG/2.5 ML UDL PO SCH ×4 (06:30→21:19)
[2018-08-30] MEDS ORDERED: CALCIUM GLUCONATE 50 ML IV ONE (07:23)
[2018-08-30] MEDS: SODIUM FERRIC GLUCONAT/SUCROSE 125 MG in NS 100 ML IV SCH (08:52)
[2018-08-30] MEDS: guaiFENesin 600 MG TAB.ER PO SCH ×2 (08:58→21:18)
[2018-08-30] MEDS: LOSARTAN POTASSIUM 50 MG TAB PO SCH (08:58)
[2018-08-30] MEDS: predniSONE 10 MG TAB PO SCH (08:58)
[2018-08-30] MEDS: ATORVASTATIN CALCIUM 40 MG TAB PO SCH (08:59)
[2018-08-30] MEDS: PANTOPRAZOLE SODIUM 40 MG TAB PO SCH (08:59)
[2018-08-30] MEDS: ABIRATERONE 250 MG PO SCH ×2 (09:03→21:16)
[2018-08-30] MEDS: Fluticasone/Vilanterol [Breo Ellipta 100-25 Mcg Inh] 1 PUFFS IH SCH (09:03)
--- NOTE | 2018-08-30 10:42 | HOSPPROG ---
Hospitalist Progress Note Assessment/Plan: [facility] Patient Name: KEVIN SADLER Rpt#: [id number] Unit Number: [id number] Attending/ER Physician: Soy Torres MD Patient Type: ADM Sushma Adm Date/Source: 08/27/18 EMR Discharge Date: Primary Carrier: MEDICARE OUTPATIENT Patient is an 88 y/o male who has a hx of prostate ca, leukemia who presented w weakness. He was recently hospitalized at [facility] when he was visiting his children in [place]. He has been to the ER twice in [place] for dehydration. After obtaining more information from the patient and his ; he was at [facility] end of July, early August w c/o fatigue, he had an ultrasound there which showed gallbladder thickening w high LFT's concerning of cholecystitis. MRCP done at that time was unrevealing, his LFT's improved. He was noted to be bacteremic w gram negative rods and treated w Zosyn during his hospital stay. He was dc on cipro and Metronidazole for a total of 14 days of treatment. The patient shared he has had ongoing diarrhea at home and has been taking Imodium without significant relief. * c diff colitis -started on oral vancomycin -likely the cause of the below *weakness and dehydration -treated w fluids -still not eating much -alcoholism worker to see *fever -none further -blood cx are pending *hypotension -has been on Losartan, suspect this has made him feel weak at home -I have cut his dose of Losartan in half and would continue this at dc - he can f/u with his PCP *acute kidney injury -resolved *iron deficiency anemia, thrombocytopenia -appreciate Dr Real -no acute bleeding noted -will need to f/u with Dr Farhan hale pending labs -asa on hold -has had 3 days of IV iron -PPI daily *hx of prostate ca & leukemia -reviewed his hx w oncology, likely not cause of the above, he has been recently seen and is stable *hypocalcemia -on IV calcium -will add oral in addition *concerns for gallbladder issues -ultrasound shows nothing acute -HIDA scan shows nothing acute w a good EF *Left leg edema that is chronic *CAD -asa & statin *plan: dietary to see, he will likely need a SNF for strengthening. continue oral calcium w IV. His Losartan dose has been decreased to 25 mg daily from 50 mg, would recommend continuing this at dc. >30 minutes at the bedside and coordinating his care. Family is very involved. Subjective: Kevin is def feeling better, but still feels very weak and tired. Objective: Vital Signs Temp Pulse Resp BP Pulse Ox 36.4 C 76 18 127/57 H 96 08/30/18 07:41 08/30/18 07:41 08/30/18 07:41 08/30/18 07:41 08/30/18 07:41 Laboratory Results 08/30/18 04:30 08/30/18 04:30 08/29/18 08/30/18 08/31/18 05:59 05:59 05:59 Intake Total 910 2723 300 Output Total 300 600 200 Balance 610 2123 100 PT 13.9 SEC (12.0-15.0) 08/27/18 17:58 INR 1.05 (0.83-1.16) 08/27/18 17:58 - Physical Exam Constitutional: not in pain, chronically ill appearing Eyes: PERRL Ears, Nose, Mouth, Throat: hearing normal Cardiovascular: regular rate and rhythym Respiratory: no respiratory distress Gastrointestinal: normoactive bowel sounds Skin: warm Musculoskeletal: generalized weakness Neurologic: AAOx3 Psychiatric: interacting appropriately ICD10 Worksheet Patient Problems: Problems Problem Status Onset Dehydration Acute Failure to thrive in adult Acute
[2018-08-30] MEDS: CALCIUM CARB W/VIT D 500 MG TAB PO SCH ×2 (12:42→21:17)
--- NOTE | 2018-08-30 14:00 | ASMTCMCOM ---
CM Note CM Note Notes: OT and Hospitalist recommending SNF rehab for patient. No notes as yet from PT. Spoke with patient and his . [facility]. Sent referrals to both. Date Signed: 08/30/2018 02:00 PM Electronically Signed By:Elsa Dhillon LCSW
--- NOTE | 2018-08-30 17:59 | SOAPPROG ---
SOAP Progress Note Assessment/Plan: Assessment:Plan: see full consult dictated I see he is c diff + -- this could explain a lot of his sx's PO vanco order will decrease PPI to once daily 08/29/18 16:33 08/30/18 17:57 1) C diff - PO bennett 125 mg 10-14 days, use probiotics when finished 2) anemia - prob partially from blood loss from colitis and erosive gastritis- no need for SB capsule if it improves 3) gastritis - PPI once daily and QHS H2RA - the H2RA only for 4 weeks = ranitidine can be 150mg or 300 mg 4) dispo - to snf to regain strength Subjective: cc - c diff, weakness, anemia pt feeling a bit better with PO vancomycin ate a little more today I expect his appetite will increase as c diff treated Objective: Vital Signs Temp Pulse Resp BP Pulse Ox 36.4 C 81 19 126/67 H 97 08/30/18 15:31 08/30/18 15:31 08/30/18 15:31 08/30/18 15:31 08/30/18 15:31 Laboratory Results 08/30/18 04:30 08/30/18 04:30 08/29/18 08/30/18 08/31/18 05:59 05:59 05:59 Intake Total 910 2723 980 Output Total 300 600 600 Balance 610 2123 380 PT 13.9 SEC (12.0-15.0) 08/27/18 17:58 INR 1.05 (0.83-1.16) 08/27/18 17:58 CTA S1S2 +BS soft nt A+Ox3 Laboratory Tests 08/28/18 08/28/18 08/28/18 04:37 04:37 13:25 Hgb 8.5 L Hct 27.1 L BUN 21 Creatinine 1.3 Stool Occult Bld Scrn POSITIVE H C. difficile Tox (PCR) 08/29/18 08/29/18 08/29/18 04:35 04:35 12:50 Hgb 9.3 L Hct 29.6 L BUN 17 Creatinine 1.2 Stool Occult Bld Scrn NEGATIVE C. difficile Tox (PCR) POSITIVE H 08/30/18 08/30/18 08/30/18 04:30 04:30 17:15 Hgb 8.7 L Hct 27.9 L BUN 18 Creatinine 1.2 Stool Occult Bld Scrn NEGATIVE C. difficile Tox (PCR) ICD10 Worksheet Patient Problems: Problems Problem Status Onset Dehydration Acute Failure to thrive in adult Acute
[2018-08-30] MEDS: ESCITALOPRAM OXALATE 10 MG TAB PO SCH (21:18)
[2018-08-30] MEDS: ESZOPICLONE 3 MG PO PRN (21:21)
[2018-08-31] MEDS: VANCOMYCIN 125 MG/2.5 ML UDL PO SCH ×4 (05:45→20:57)
[2018-08-31] MEDS: ATORVASTATIN CALCIUM 40 MG TAB PO SCH (08:56)
[2018-08-31] MEDS: PANTOPRAZOLE SODIUM 40 MG TAB PO SCH (08:56)
[2018-08-31] MEDS: predniSONE 10 MG TAB PO SCH (08:57)
[2018-08-31] MEDS: CALCIUM CARB W/VIT D 500 MG TAB PO SCH ×2 (08:57→20:57)
[2018-08-31] MEDS: guaiFENesin 600 MG TAB.ER PO SCH ×2 (08:57→20:57)
[2018-08-31] MEDS: LOSARTAN POTASSIUM 50 MG TAB PO SCH (08:57)
[2018-08-31] MEDS: ABIRATERONE 250 MG PO SCH ×2 (09:00→20:58)
[2018-08-31] MEDS: Fluticasone/Vilanterol [Breo Ellipta 100-25 Mcg Inh] 1 PUFFS IH SCH (09:01)
--- NOTE | 2018-08-31 10:31 | SOAPPROG ---
SOAP Progress Note Assessment/Plan: Assessment: 1. C. diff colitis; symptomatically improved albeit still with multiple loose BM 's without blood. 2. LGI bleed secondary to C. diff Plan: 1. SUSIE. 2. Continue po Vanco. 3. Will follow with you. Jorje Crespo MD 08/31/18 10:28 Subjective: CC; C. diff diarrhea. Interval HPI: Patient feeling better with more energy and tolerating po diet albeit still with frequent watery BM's without blood. Objective: Vital Signs Temp Pulse Resp BP Pulse Ox 36.4 C 78 15 146/72 H 95 08/31/18 07:12 08/31/18 07:12 08/31/18 07:12 08/31/18 08:57 08/31/18 07:12 Laboratory Results 08/30/18 04:30 08/31/18 04:32 08/30/18 08/31/18 09/01/18 05:59 05:59 05:59 Intake Total 2723 980 Output Total 600 850 Balance 2123 130 PT 13.9 SEC (12.0-15.0) 08/27/18 17:58 INR 1.05 (0.83-1.16) 08/27/18 17:58 Physical Exam - Physical Exam General Appearance: WD/WN, alert, no apparent distress Respiratory: lungs clear, normal breath sounds Cardiac/Chest: regular rate, rhythm Abdomen: normal bowel sounds, non-tender, soft Skin: normal color, warm/dry Neuro/Psych: alert, normal mood/affect, oriented x 3 ICD10 Worksheet Patient Problems: Problems Problem Status Onset Dehydration Acute Failure to thrive in adult Acute
[2018-08-31] MEDS ORDERED: CALCIUM GLUCONATE 50 ML IV ONE (11:41)
--- NOTE | 2018-08-31 13:22 | HOSPPROG ---
Hospitalist Progress Note Assessment/Plan: Patient is an 88 y/o male who has a hx of prostate ca, leukemia who presented w weakness. He was recently hospitalized at [facility] when he was visiting his children in [place]. He has been to the ER twice in [place] for dehydration. He was noted to be bacteremic w gram negative rods and treated w Zosyn during his hospital stay. He was dc on cipro and Metronidazole for a total of 14 days of treatment. The patient shared he has had ongoing diarrhea at home and has been taking Imodium without significant relief. First encounter , chart reviewed. * c diff colitis -started on oral vancomycin -likely the cause of the below *weakness and dehydration -treated w fluids -still not eating much -buyer planner to see *fever -none further -blood cx NGTD *hypotension -has been on Losartan, suspect this has made him feel weak at home -cut his dose of Losartan in half and would continue this at pr - he can f/u with his PCP *acute kidney injury -resolved *iron deficiency anemia, thrombocytopenia -appreciate Dr Real -no acute bleeding noted -will need to f/u with Dr Real w pending labs -asa on hold -has had 3 days of IV iron -PPI daily *hx of prostate ca & leukemia -likely not cause of the above, he has been recently seen and is stable *hypocalcemia -on IV calcium -oral in addition *concerns for gallbladder issues -ultrasound shows nothing acute -HIDA scan shows nothing acute w a good EF *Left leg edema that is chronic *CAD -asa & statin *plan: SNF for strengthening. continue oral calcium w IV. His Losartan dose has been decreased to 25 mg daily from 50 mg, would recommend continuing this at pr. Family is very involved. Subjective: Asleep, arousable. Not hungry. Feels very tired. Objective: Vital Signs Temp Pulse Resp BP Pulse Ox 36.4 C 78 15 146/72 H 95 08/31/18 07:12 08/31/18 07:12 08/31/18 07:12 08/31/18 08:57 08/31/18 07:12 Laboratory Results 08/30/18 04:30 08/31/18 04:32 08/30/18 08/31/18 09/01/18 05:59 05:59 05:59 Intake Total 2723 980 Output Total 600 850 Balance 2123 130 PT 13.9 SEC (12.0-15.0) 08/27/18 17:58 INR 1.05 (0.83-1.16) 08/27/18 17:58 - Physical Exam Constitutional: appears nourished, chronically ill appearing, cachectic Eyes: PERRL, anicteric sclera, EOMI Ears, Nose, Mouth, Throat: moist mucous membranes, hearing normal, ears appear normal Cardiovascular: No JVD, No tachycardia, No edema Respiratory: no respiratory distress, no rales or rhonchi, reduced air movement Gastrointestinal: distension, No tenderness, No ascites Skin: warm, normal color, No mottled Musculoskeletal: normal joint ROM, no joint effusions, generalized weakness Neurologic: AAOx3 Psychiatric: interacting appropriately, not anxious, not encephalopathic, thought process linear ICD10 Worksheet Patient Problems: Problems Problem Status Onset Dehydration Acute Failure to thrive in adult Acute
[2018-08-31] MEDS: PREPARATION H 51 GM CRTUBE PR PRN ×2 (18:48→23:08)
[2018-08-31] MEDS: ESCITALOPRAM OXALATE 10 MG TAB PO SCH (20:57)
[2018-08-31] MEDS: ESZOPICLONE 3 MG PO PRN (23:07)
[2018-09-01] MEDS ORDERED: LORazepam 0.5 MG TAB PO ONE (01:37)
[2018-09-01] MEDS: ONDANSETRON 4 MG/2 ML VIAL IVP PRN (05:18)
[2018-09-01] MEDS: VANCOMYCIN 125 MG/2.5 ML UDL PO SCH ×4 (05:18→20:18)
--- NOTE | 2018-09-01 09:37 | SOAPPROG ---
SOAP Progress Note Assessment/Plan: Assessment: 1. C. diff colitis; symptomatically about the same, depressed. Still with multiple loose BM's without blood. 2. LGI bleed secondary to C. diff Plan: 1. SUSIE. 2. Continue po Vanco. 3. Will follow with you. Jorje Crespo MD 09/01/18 09:34 Subjective: CC: C. diff colitis. Interval HPI: Patient still weak and having some loose stools. Depressed. Objective: Vital Signs Temp Pulse Resp BP Pulse Ox 36.7 C 86 16 162/74 H 89 L 09/01/18 08:00 09/01/18 08:00 09/01/18 08:00 09/01/18 08:00 09/01/18 08:00 Laboratory Results 08/30/18 04:30 08/31/18 04:32 08/31/18 09/01/18 09/02/18 05:59 05:59 05:59 Intake Total 980 750 900 Output Total 850 400 Balance 130 350 900 PT 13.9 SEC (12.0-15.0) 08/27/18 17:58 INR 1.05 (0.83-1.16) 08/27/18 17:58 Physical Exam - Physical Exam General Appearance: mild distress Respiratory: lungs clear Cardiac/Chest: regular rate, rhythm Abdomen: normal bowel sounds, non-tender, soft Skin: normal color, warm/dry ICD10 Worksheet Patient Problems: Problems Problem Status Onset Dehydration Acute Failure to thrive in adult Acute
[2018-09-01] MEDS: CALCIUM CARB W/VIT D 500 MG TAB PO SCH ×2 (10:47→20:17)
[2018-09-01] MEDS: LOSARTAN POTASSIUM 50 MG TAB PO SCH (10:48)
[2018-09-01] MEDS: predniSONE 10 MG TAB PO SCH (10:49)
[2018-09-01] MEDS: PANTOPRAZOLE SODIUM 40 MG TAB PO SCH (10:49)
[2018-09-01] MEDS: guaiFENesin 600 MG TAB.ER PO SCH ×2 (10:49→20:17)
[2018-09-01] MEDS: ATORVASTATIN CALCIUM 40 MG TAB PO SCH (10:49)
[2018-09-01] MEDS: Fluticasone/Vilanterol [Breo Ellipta 100-25 Mcg Inh] 1 PUFFS IH SCH (10:50)
[2018-09-01] MEDS: ABIRATERONE 250 MG PO SCH ×2 (10:51→20:18)
--- NOTE | 2018-09-01 13:22 | HOSPPROG ---
Addendum entered and electronically signed by Jennifer Meredith NP 09/01/18 13:24 : Will increase vanco to 250mg QID. Original Note: Hospitalist Progress Note Assessment/Plan: Patient is an 88 y/o male who has a hx of prostate ca, leukemia who presented w weakness. He was recently hospitalized at [facility] when he was visiting his children in [place]. He has been to the ER twice in [place] for dehydration. He was noted to be bacteremic w gram negative rods and treated w Zosyn during his hospital stay. He was dc on cipro and Metronidazole for a total of 14 days of treatment. The patient shared he has had ongoing diarrhea at home and has been taking Imodium without significant relief. First encounter , chart reviewed. 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 *fever -none further -blood cx NGTD *hypotension -has been on Losartan, suspect this has made him feel weak at home -cut his dose of Losartan in half and would continue this at dc - he can f/u with his PCP *acute kidney injury -resolved *iron deficiency anemia, thrombocytopenia -no acute bleeding noted -will need to f/u with Dr Farhan hale pending labs -asa on hold -has had 3 days of IV iron -PPI daily *hx of prostate ca & leukemia -likely not cause of the above, he has been recently seen and is stable *hypocalcemia -on IV calcium -oral in addition *concerns for gallbladder issues -ultrasound shows nothing acute -HIDA scan shows nothing acute w a good EF *Left leg edema that is chronic *CAD -asa & statin *plan: SNF for strengthening. requesting a palliative care consult D/W Frankie and Dr Crespo D/W Subjective: Very tired. Not hungry. Frustrated with being ill. Objective: Vital Signs Temp Pulse Resp BP Pulse Ox 36.7 C 93 16 130/58 H 87 L 09/01/18 08:00 09/01/18 11:46 09/01/18 11:46 09/01/18 11:46 09/01/18 11:46 Laboratory Results 08/30/18 04:30 08/31/18 04:32 08/31/18 09/01/18 09/02/18 05:59 05:59 05:59 Intake Total 980 750 900 Output Total 850 400 Balance 130 350 900 PT 13.9 SEC (12.0-15.0) 08/27/18 17:58 INR 1.05 (0.83-1.16) 08/27/18 17:58 - Physical Exam Constitutional: chronically ill appearing, uncomfortable, cachectic Eyes: PERRL, anicteric sclera, EOMI Ears, Nose, Mouth, Throat: moist mucous membranes, hearing normal, ears appear normal Cardiovascular: No JVD, No tachycardia, No edema Respiratory: no respiratory distress, no rales or rhonchi, reduced air movement Gastrointestinal: normoactive bowel sounds, No tenderness, No ascites Skin: warm, normal color, No mottled Musculoskeletal: normal joint ROM, no joint effusions, generalized weakness Neurologic: AAOx3 Psychiatric: not anxious, not encephalopathic, thought process linear ICD10 Worksheet Patient Problems: Problems Problem Status Onset Dehydration Acute Failure to thrive in adult Acute
--- NOTE | 2018-09-01 13:38 | ASMTCMCOM ---
CM Note CM Note Notes: [facility] unable to accept, no bed availability. Updated patient's , she is okay with [facility]. Palliative Care consult placed - Frankie attempted today, unable to meet with patient and will follow-up on Friday. Updated RN. CM to follow. Plan: [facility] Date Signed: 09/01/2018 01:37 PM Electronically Signed By:Kellie Smart RN
[2018-09-01] MEDS: NS 1,000 ML IV SCH (17:15)
[2018-09-01] MEDS: ESCITALOPRAM OXALATE 10 MG TAB PO SCH (20:17)
[2018-09-01] MEDS: PREPARATION H 51 GM CRTUBE PR PRN (20:18)
[2018-09-02] MEDS: VANCOMYCIN 125 MG/2.5 ML UDL PO SCH ×4 (05:16→21:25)
[2018-09-02] MEDS ORDERED: CALCIUM GLUCONATE 50 ML IV ONE (07:16)
[2018-09-02] MEDS: LOSARTAN POTASSIUM 50 MG TAB PO SCH (08:29)
[2018-09-02] MEDS: ATORVASTATIN CALCIUM 40 MG TAB PO SCH (08:31)
[2018-09-02] MEDS: predniSONE 10 MG TAB PO SCH (08:31)
[2018-09-02] MEDS: guaiFENesin 600 MG TAB.ER PO SCH ×2 (08:31→21:24)
[2018-09-02] MEDS: PANTOPRAZOLE SODIUM 40 MG TAB PO SCH (08:31)
[2018-09-02] MEDS: CALCIUM CARB W/VIT D 500 MG TAB PO SCH ×2 (08:31→21:24)
[2018-09-02] MEDS: ACETAMINOPHEN 325 MG TAB PO PRN (08:46)
[2018-09-02] MEDS: ABIRATERONE 250 MG PO SCH ×2 (09:58→21:29)
[2018-09-02] MEDS: Fluticasone/Vilanterol [Breo Ellipta 100-25 Mcg Inh] 1 PUFFS IH SCH (09:58)
[2018-09-02] MEDS: NS 1,000 ML IV SCH (11:27)
--- NOTE | 2018-09-02 11:46 | SOAPPROG ---
SOAP Progress Note Assessment/Plan: Assessment: 1. C. diff colitis; symptomatically improved and mentally brighter today. Plan: 1. SUSIE. 2. Continue po Vanco(now at higher dose). 3. Will follow with you. Jorje Crespo MD 09/02/18 11:43 Subjective: CC: C diff colitis. Interval HPI: Patient with less diarrhea and urgency today, Mood better as well. Objective: Vital Signs Temp Pulse Resp BP Pulse Ox 37.2 C 73 18 113/46 L 95 09/02/18 11:28 09/02/18 11:28 09/02/18 11:28 09/02/18 11:28 09/02/18 11:28 Laboratory Results 09/02/18 10:20 09/02/18 10:20 09/01/18 09/02/18 09/03/18 05:59 05:59 05:59 Intake Total 750 2300 500 Output Total 400 Balance 350 2300 500 PT 13.9 SEC (12.0-15.0) 08/27/18 17:58 INR 1.05 (0.83-1.16) 08/27/18 17:58 Physical Exam - Physical Exam General Appearance: alert, no apparent distress Respiratory: lungs clear, normal breath sounds Cardiac/Chest: regular rate, rhythm Abdomen: normal bowel sounds, non-tender, soft, other (still distended.) Skin: normal color, warm/dry Neuro/Psych: alert, normal mood/affect ICD10 Worksheet Patient Problems: Problems Problem Status Onset Dehydration Acute Failure to thrive in adult Acute
--- NOTE | 2018-09-02 13:20 | ASMTCMCOM ---
CM Note CM Note Notes: Patient plan of care reviewed.. Frankie Sy saw patient who is here with dehydration and C-diff. Oncologist is Dr. Downey. Will need SNF at discharge. Per previous CM note the patient's is ok with [facility]. CM to follow. Plan: DC to SNF when medically cleared for discharge. Date Signed: 09/02/2018 01:19 PM Electronically Signed By:Kristen Barrientos RN
--- NOTE | 2018-09-02 14:44 | HOSPPROG ---
Hospitalist Progress Note Assessment/Plan: Patient is an 88 y/o male who has a hx of prostate ca, leukemia who presented w weakness. He was recently hospitalized at [facility] when he was visiting his children in [place]. He has been to the ER twice in [place] for dehydration. He was noted to be bacteremic w gram negative rods and treated w Zosyn during his hospital stay. He was dc on cipro and Metronidazole for a total of 14 days of treatment. The patient shared he has had ongoing diarrhea at home and has been taking Imodium without significant relief. 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 *fever -returned today, possibly 2/2 ATX -blood cultures, labs done -follow -reviewed CDB with pt and family *hypotension -has been on Losartan, suspect this has made him feel weak at home -cut his dose of Losartan in half and would continue this at dc - he can f/u with his PCP *acute kidney injury -resolved now returned -cont IVF -recheck in am *iron deficiency anemia, thrombocytopenia -no acute bleeding noted -will need to f/u with Dr Farhan hale pending labs -asa on hold -has had 3 days of IV iron -PPI daily *hx of prostate ca & leukemia -likely not cause of the above, he has been recently seen and is stable *hypocalcemia -on IV calcium -oral in addition *concerns for gallbladder issues -ultrasound shows nothing acute -HIDA scan shows nothing acute w a good EF *Left leg edema that is chronic *CAD -asa & statin *plan: SNF for strengthening. D/W Frankie palliative, appreciate him seeing the patient and family D/W and daughter at bedside Subjective: Awake, feels a bit better today. Wants to go outside. Objective: Vital Signs Temp Pulse Resp BP Pulse Ox 37.2 C 73 18 113/46 L 95 09/02/18 11:28 09/02/18 11:28 09/02/18 11:28 09/02/18 11:28 09/02/18 11:28 Laboratory Results 09/02/18 10:20 09/02/18 10:20 09/01/18 09/02/18 09/03/18 05:59 05:59 05:59 Intake Total 750 2300 500 Output Total 400 Balance 350 2300 500 PT 13.9 SEC (12.0-15.0) 08/27/18 17:58 INR 1.05 (0.83-1.16) 08/27/18 17:58 - Physical Exam Constitutional: chronically ill appearing, uncomfortable, cachectic Eyes: PERRL, anicteric sclera, EOMI Ears, Nose, Mouth, Throat: moist mucous membranes, hearing normal, ears appear normal Cardiovascular: No JVD, No tachycardia, No edema Respiratory: no respiratory distress, no rales or rhonchi, reduced air movement Gastrointestinal: distension, No tenderness, No ascites Skin: warm, normal color, No mottled Musculoskeletal: normal joint ROM, no joint effusions, generalized weakness Neurologic: AAOx3 Psychiatric: interacting appropriately, not anxious, not encephalopathic, thought process linear, depressed ICD10 Worksheet Patient Problems: Problems Problem Status Onset Dehydration Acute Failure to thrive in adult Acute
[2018-09-02] MEDS: ESCITALOPRAM OXALATE 10 MG TAB PO SCH (21:24)
[2018-09-02] MEDS: ESZOPICLONE 3 MG PO PRN (22:10)
[2018-09-02] MEDS: ONDANSETRON DISINTEGRATING 4 MG TAB PO PRN (22:13)
[2018-09-03] MEDS: ONDANSETRON DISINTEGRATING 4 MG TAB PO PRN (04:29)
[2018-09-03] MEDS: ACETAMINOPHEN 325 MG TAB PO PRN (04:32)
[2018-09-03] MEDS: VANCOMYCIN 125 MG/2.5 ML UDL PO SCH ×4 (04:33→21:18)
[2018-09-03] MEDS: Fluticasone/Vilanterol [Breo Ellipta 100-25 Mcg Inh] 1 PUFFS IH SCH (05:57)
[2018-09-03] MEDS: ATORVASTATIN CALCIUM 40 MG TAB PO SCH (09:00)
[2018-09-03] MEDS: PANTOPRAZOLE SODIUM 40 MG TAB PO SCH (09:00)
[2018-09-03] MEDS: LOSARTAN POTASSIUM 50 MG TAB PO SCH (09:00)
[2018-09-03] MEDS: CALCIUM CARB W/VIT D 500 MG TAB PO SCH ×2 (09:00→21:22)
[2018-09-03] MEDS: guaiFENesin 600 MG TAB.ER PO SCH ×2 (09:00→21:24)
[2018-09-03] MEDS: predniSONE 10 MG TAB PO SCH (09:01)
[2018-09-03] MEDS: ABIRATERONE 250 MG PO SCH ×2 (09:05→21:15)
--- NOTE | 2018-09-03 10:02 | SOAPPROG ---
SOAP Progress Note Assessment/Plan: Assessment: 1. C. diff colitis; rough evening and night yesterday due to rectal prolapse and insomnia.. Plan: 1. SUSIE. 2. Continue po Vanco(now at higher dose). 3. Will follow with you. Jorje Crespo MD 09/03/18 09:59 Subjective: CC: C. diff colitis. Interval HPI: Patient had rectal prolapse last night that was reduced by nurse. Could not sleep last night, tired today. Stool starting to form up. Objective: Vital Signs Temp Pulse Resp BP Pulse Ox 37.3 C 79 14 126/61 H 94 09/03/18 08:32 09/03/18 08:32 09/03/18 08:32 09/03/18 09:00 09/03/18 08:32 Laboratory Results 09/02/18 10:20 09/03/18 04:54 09/02/18 09/03/18 09/04/18 05:59 05:59 05:59 Intake Total 2300 2500 Output Total 301 Balance 2300 2199 PT 13.9 SEC (12.0-15.0) 08/27/18 17:58 INR 1.05 (0.83-1.16) 08/27/18 17:58 Physical Exam - Physical Exam General Appearance: alert, mild distress Respiratory: lungs clear, normal breath sounds Cardiac/Chest: regular rate, rhythm Abdomen: normal bowel sounds, non-tender, soft Skin: normal color, warm/dry Neuro/Psych: depressed affect ICD10 Worksheet Patient Problems: Problems Problem Status Onset Dehydration Acute Failure to thrive in adult Acute
[2018-09-03] MEDS: NS 1,000 ML IV SCH (13:57)
--- NOTE | 2018-09-03 15:21 | HOSPPROG ---
Hospitalist Progress Note Assessment/Plan: Patient is an 88 y/o male who has a hx of prostate ca, leukemia who presented w weakness. He was recently hospitalized at [facility] when he was visiting his children in [place]. He has been to the ER twice in [place] [employer] for dehydration. He was noted to be bacteremic w gram negative rods and treated w Zosyn during his hospital stay. He was dc on cipro and Metronidazole for a total of 14 days of treatment. The patient shared he has had ongoing diarrhea at home and has been taking Imodium without significant relief. * c diff colitis -on oral vancomycin, 250mg -likely the cause of the below -kub, personally reviewed, no obstruction -D/W Dr Ramos, consult ordered *weakness and dehydration -treated w fluids -still not eating much *fever -none in 24 hours - possibly 2/2 ATX -blood cultures pending -follow *hypotension -has been on Losartan, suspect this has made him feel weak at home -cut his dose of Losartan in half and would continue this at dc - he can f/u with his PCP *acute kidney injury -resolved now returned -cont IVF -resolved *iron deficiency anemia, thrombocytopenia -no acute bleeding noted -will need to f/u with Dr Farhan hale pending labs -asa on hold -has had 3 days of IV iron -PPI daily *Rectal prolapse -resolved *hx of prostate ca & leukemia -likely not cause of the above, he has been recently seen and is stable *hypocalcemia -on IV calcium -oral in addition *concerns for gallbladder issues -ultrasound shows nothing acute -HIDA scan shows nothing acute w a good EF *Left leg edema that is chronic *CAD -asa & statin *plan: SNF for strengthening. Pt slow to improve ID consult Subjective: Very tired today. Not feeling well at all. Some nausea. Objective: Vital Signs Temp Pulse Resp BP Pulse Ox 37.3 C 79 14 126/61 H 94 09/03/18 08:32 09/03/18 08:32 09/03/18 08:32 09/03/18 09:00 09/03/18 08:32 Microbiology 08/29/18 11:13 Blood Culture - Final Blood 08/29/18 11:18 Blood Culture - Final Blood Laboratory Results 09/02/18 10:20 09/03/18 04:54 09/02/18 09/03/18 09/04/18 05:59 05:59 05:59 Intake Total 2300 2500 Output Total 301 Balance 2300 2199 PT 13.9 SEC (12.0-15.0) 08/27/18 17:58 INR 1.05 (0.83-1.16) 08/27/18 17:58 - Physical Exam Constitutional: chronically ill appearing, uncomfortable, No obese Eyes: PERRL, anicteric sclera, EOMI Ears, Nose, Mouth, Throat: moist mucous membranes, hearing normal, ears appear normal Cardiovascular: No JVD, No tachycardia, No edema Respiratory: no respiratory distress, no rales or rhonchi, reduced air movement Gastrointestinal: distension, No tenderness, No ascites, No guarding Skin: warm, normal color, No mottled Musculoskeletal: no joint effusions, abnormal gait, generalized weakness Neurologic: AAOx3 Psychiatric: not anxious, not encephalopathic, thought process linear, depressed ICD10 Worksheet Patient Problems: Problems Problem Status Onset Dehydration Acute Failure to thrive in adult Acute
[2018-09-03] MEDS ORDERED: CALCIUM GLUCONATE 50 ML IV ONE (15:22)
[2018-09-03] MEDS: ESCITALOPRAM OXALATE 10 MG TAB PO SCH (21:22)
--- NOTE | 2018-09-04 00:08 | GCON ---
INFECTIOUS DISEASE CONSULTATION DATE OF CONSULTATION: 09/03/2018 REFERRING PHYSICIAN: Jennifer Arellano NP REASON FOR CONSULTATION: C difficile colitis. 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 The patient was hospitalized at [facility] approximately 1 month ago at which point in time he had E coli bacteremia, which was felt to be most compatible with biliary etiology. He was treated c onservatively and received antibiotic therapy with Zosyn which was transitioned to ciprofloxacin and metronidazole at time of discharge. He subsequently traveled to [place] prior to [facility] and note s his antibiotic therapy was completed while he was there. Subsequently, he developed onset of exces sive fatigue. He describes having several rounds of IV hydration at the emergency department in [facility]. He then came to visit his children in [place] at which point in time he developed onset of diarrh ea which was more than 10 times per day. Diarrhea was described as watery with blood and mucus. He did have some associated abdominal discomfort. Further evaluation revealed a positive C difficile PC R. He was started on oral vancomycin at 125 mg 4 times per day on 08/29/2018. Based on persistent d iarrhea, this was increased to 250 mg p.o. q.i.d. on 09/01/2018. The patient notes that he has only had 1 episode of diarrhea today. His primary complaint is ongoing significant fatigue and anorexia. He is not having nausea or vomiting. He feels significantly debilitated. He has continued complain ts of abdominal distention. Abdominal x-ray was obtained earlier today and shows no evidence of mary l obstruction without colonic dilatation noted. Given the patient's slow response to therapy, I am n ow asked to assist in his ongoing management. PAST MEDICAL HISTORY: Marginal zone lymphoma, E coli bacteremia at [facility] recently felt to be of biliary etiology, prostate cancer, coronary artery disease requiring stenting. PAST SURGICAL HISTORY: None. CURRENT MEDICATIONS: Vancomycin 250 mg p.o. q.i.d., aspirin 81 mg p.o. daily, Lipitor 40 mg p.o. nguyễn ly, Lexapro 10 mg p.o. at bedtime, Mucinex 1200 mg p.o. b.i.d., Cozaar 25 mg p.o. daily, Zytiga 500 m g p.o. b.i.d., Protonix 40 mg p.o. daily, preparation H as needed, prednisone 10 mg p.o. daily. ALLERGIES: No known drug allergies. SOCIAL HISTORY: Patient does not smoke. Social alcohol use. Currently visiting [place]. REVIEW OF SYSTEMS: Outside that noted in the HPI, the remainder of a 10-system review is notable for the patient had upper endoscopy during hospitalization showing findings of erosive gastritis; also h ad rectal prolapse yesterday which was able to be reduced by nursing staff; notes right upper extremi ty erythema and tenderness today. FAMILY HISTORY: Noncontributory. PHYSICAL EXAMINATION: VITAL SIGNS: Temperature 36.6, heart rate 78, respiratory rate 18, blood pres sure 127/58, oxygen saturation 92% on room air. GENERAL: Patient is a fatigued male in no acute dis tress. He appears nontoxic. HEENT: There is no scleral icterus, conjunctival injection, or conjunc tival petechiae. Oropharynx shows mildly dry mucous membranes. No nasal discharge or sinus tenderne ss. NECK: Supple without palpable lymphadenopathy or thyromegaly. CHEST: Clear to auscultation bi laterally without adventitious sounds. Respiratory effort is normal. CARDIOVASCULAR: Regular rate and rhythm without murmurs, gallops, or rubs. ABDOMEN: Soft, moderately distended, nontender to pal pation. Bowel sounds are present. No palpable organomegaly. MUSCULOSKELETAL: The right upper extr emity shows a small area of phlebitis above the right AC fossa. Mild tenderness is present. There i s 1+ edema of the ankles bilaterally. SKIN: Multiple ecchymoses scattered over the skin. No stigma ta of endocarditis. Skin is warm and dry to touch. NEUROLOGIC: Patient is alert and interacts appr opriately with examiner. Cranial nerves 2-12 are grossly intact. Muscle tone and bulk are decreased . LYMPHATICS: No cervical or supraclavicular nodes palpable. LABORATORY DATA: White blood cell count 11.9, hematocrit 27.6, platelets 109. Serum creatinine 1.2. AST 17, ALT 28, bilirubin 0.6, alkaline phosphatase 90, albumin 2.2. C difficile toxin is positive on 08/29/2018. Blood cultures x2 sets on 08/29/2018, are no growth and from 09/02/2018, are pending . Abdominal x-ray as noted above. HIDA scan showed normal gallbladder ejection fraction. Abdominal ultrasound shows normal appearing biliary system. IMPRESSION: Clostridium difficile colitis: The patient with recent risk factors of antibiotic expos ure and hospitalization. Clinical presentation is compatible with Clostridium difficile colitis and PCR testing is positive. The patient appears to be responding to oral vancomycin, although response has been slow. Today he has only had 1 episode of diarrhea. We will continue with vancomycin 250 mg q.i.d. as long as he shows continued improvement. Discussed with patient that fatigue can be prolon ged in the setting of Clostridium difficile. If patient fails to improve further, could consider eit her addition of intravenous metronidazole or change to fidaxomicin. Potential for recurrent Clostrid ium difficile in the future estimated at approximately 20% which was discussed with patient today. RECOMMENDATIONS: 1. Agree with continued oral vancomycin 250 mg 4 times per day. 2. Contact precautions. 3. Antibiotic avoidance if possible in the setting of C difficile. 4. No clinical findings and clinical course were discussed with patient and today. 5. Risk of recurrence after completing treatment was also reviewed with patient as well as need to a void antibiotics if possible. Thank you for this consultation. We will continue to follow the patient with you. /[id number]/MODL
[2018-09-04] MEDS: ACETAMINOPHEN 325 MG TAB PO PRN (05:07)
[2018-09-04] MEDS: VANCOMYCIN 125 MG/2.5 ML UDL PO SCH ×4 (05:08→21:04)
[2018-09-04] MEDS: Fluticasone/Vilanterol [Breo Ellipta 100-25 Mcg Inh] 1 PUFFS IH SCH (05:22)
[2018-09-04] MEDS: NS 1,000 ML IV SCH (09:42)
--- NOTE | 2018-09-04 10:08 | SOAPPROG ---
SOAP Progress Note Assessment/Plan: Assessment: 1. C. diff colitis; diarrhea persists though marginally better and patient emotionally better today. Plan: 1. SUSIE. 2. Continue po Vanco. 3. Will follow with you. Jorje Crespo MD 09/04/18 10:04 Subjective: CC: C. diff colitis. Interval HPI: Patient notes that diarrhea less severe and some form to BM. Emotionally feeling better today. Still frustrated of slow progress of improvement in symptoms. Objective: Vital Signs Temp Pulse Resp BP Pulse Ox 36.6 C 80 16 124/58 H 94 09/04/18 08:07 09/04/18 08:07 09/04/18 08:07 09/04/18 08:07 09/04/18 08:07 Microbiology 08/29/18 11:13 Blood Culture - Final Blood 08/29/18 11:18 Blood Culture - Final Blood Laboratory Results 09/02/18 10:20 09/03/18 04:54 09/03/18 09/04/18 09/05/18 05:59 05:59 05:59 Intake Total 2500 450 1094 Output Total 301 750 Balance 2199 -300 1094 PT 13.9 SEC (12.0-15.0) 08/27/18 17:58 INR 1.05 (0.83-1.16) 08/27/18 17:58 Physical Exam - Physical Exam General Appearance: WD/WN, alert, no apparent distress Respiratory: lungs clear Abdomen: normal bowel sounds (Distended.), non-tender, soft Skin: normal color, warm/dry Neuro/Psych: alert, normal mood/affect, oriented x 3 ICD10 Worksheet Patient Problems: Problems Problem Status Onset Dehydration Acute Failure to thrive in adult Acute
--- NOTE | 2018-09-04 10:26 | PCMIDPN ---
Assessment/Plan: Assessment: Probable C difficile colitis. Patient is doing somewhat better since admission. He still has numerous loose stools although this is hard to quantify given that he has no rectal continence at baseline. Therefore any time he sits up he stools. This stool that is being produced is still fairly liquid. It seems not to be in his greater quantity as it did days ago. I interpret this as improvement along with his general clinical appearance. His family agrees. We will continue oral vancomycin and follow improvement. Plan: 1. Continue oral vancomycin at present dose. 2. Follow his clinical condition. 09/04/18 15:31 Subjective: Patient is somewhat improved this morning. His family states that he woke up smiling which is new in this illness. He still states that he has ongoing stool issues. However he also notes that at baseline he is fully incontinent rectally. Objective: P.o. Vancomycin # 6 Vital Signs Temp Pulse Resp BP Pulse Ox 36.6 C 80 16 124/58 H 94 09/04/18 08:07 09/04/18 08:07 09/04/18 08:07 09/04/18 08:07 09/04/18 08:07 Microbiology 08/29/18 11:13 Blood Culture - Final Blood 08/29/18 11:18 Blood Culture - Final Blood Laboratory Results 09/02/18 10:20 09/03/18 04:54 09/03/18 09/04/18 09/05/18 05:59 05:59 05:59 Intake Total 2500 450 1094 Output Total 301 750 25 Balance 2199 -300 1069 - Physical Exam General Appearance: WD/WN, alert, no apparent distress, non-toxic, other ( Chronically ill-appearing) Respiratory: lungs clear, normal breath sounds, No respiratory distress Cardiac/Chest: regular rate, rhythm, No tachycardia Skin: normal color, warm/dry, No rash Neuro/Psych: alert, normal mood/affect, oriented x 3 ICD10 Worksheet Patient Problems: Problems Problem Status Onset Dehydration Acute Failure to thrive in adult Acute
[2018-09-04] MEDS: ATORVASTATIN CALCIUM 40 MG TAB PO SCH (10:55)
[2018-09-04] MEDS: predniSONE 10 MG TAB PO SCH (10:55)
[2018-09-04] MEDS: CALCIUM CARB W/VIT D 500 MG TAB PO SCH ×2 (10:55→21:05)
[2018-09-04] MEDS: LOSARTAN POTASSIUM 50 MG TAB PO SCH (10:55)
[2018-09-04] MEDS: guaiFENesin 600 MG TAB.ER PO SCH ×2 (10:55→21:05)
[2018-09-04] MEDS: PANTOPRAZOLE SODIUM 40 MG TAB PO SCH (10:56)
--- NOTE | 2018-09-04 11:16 | ASMTCMCOM ---
CM Note CM Note Notes: Pt still having liquid stools. Spoke with pt's RN who states it is improving and pt may discharge tomorrow if c diff continues to improve. [facility] has accepted. CM to follow. D/C Plans: [facility] Date Signed: 09/04/2018 11:15 AM Electronically Signed By:Jaida Fried
[2018-09-04] MEDS: ABIRATERONE 250 MG PO SCH ×2 (12:36→21:06)
--- NOTE | 2018-09-04 14:19 | HOSPPROG ---
Hospitalist Progress Note Assessment/Plan: Patient is an 88 y/o male who has a hx of prostate ca, leukemia who presented w weakness. He was recently hospitalized at [facility] when he was visiting his children in [place]. He has been to the ER twice in [place] for dehydration. He was noted to be bacteremic w gram negative rods and treated w Zosyn during his hospital stay. He was dc on cipro and Metronidazole for a total of 14 days of treatment. The patient shared he has had ongoing diarrhea at home and has been taking Imodium without significant relief. * c diff colitis -on oral vancomycin, 250mg -likely the cause of the below -kub, performed yesterday, no obstruction -ID and GI following, recommendations appreciated *weakness and dehydration -treated w fluids -still not eating much *fever - none in 24 hours - possibly 2/2 ATX - blood cultures pending - follow *hypotension - has been on Losartan, suspect this has made him feel weak at home - cut his dose of Losartan in half and would continue this at dc - he can f/u with his PCP *acute kidney injury -resolved now returned - cont IVF -r esolved *iron deficiency anemia, thrombocytopenia - no acute bleeding noted - will need to f/u with Dr Farhan hale pending labs - asa on hold - has had 3 days of IV iron - PPI daily *Rectal prolapse - resolved *hx of prostate ca & leukemia - likely not cause of the above, he has been recently seen and is stable *hypocalcemia - on IV calcium - oral in addition *concerns for gallbladder issues - ultrasound shows nothing acute - HIDA scan shows nothing acute w a good EF *Left leg edema that is chronic *CAD -asa & statin *Dispo: SNF for strengthening. Subjective: Patient reports loose stools overnight Objective: Vital Signs Temp Pulse Resp BP Pulse Ox 36.6 C 83 22 H 143/67 H 96 09/04/18 12:02 09/04/18 12:02 09/04/18 12:02 09/04/18 12:02 09/04/18 12:02 Microbiology 08/29/18 11:13 Blood Culture - Final Blood 08/29/18 11:18 Blood Culture - Final Blood Laboratory Results 09/02/18 10:20 09/03/18 04:54 09/03/18 09/04/18 09/05/18 05:59 05:59 05:59 Intake Total 2500 450 1094 Output Total 301 750 25 Balance 2199 -300 1069 PT 13.9 SEC (12.0-15.0) 08/27/18 17:58 INR 1.05 (0.83-1.16) 08/27/18 17:58 - Physical Exam Constitutional: chronically ill appearing Eyes: PERRL Ears, Nose, Mouth, Throat: moist mucous membranes Cardiovascular: regular rate and rhythym Respiratory: no respiratory distress Gastrointestinal: soft, non-tender abdomen, distension Skin: warm Neurologic: AAOx3 Psychiatric: interacting appropriately ICD10 Worksheet Patient Problems: Problems Problem Status Onset Dehydration Acute Failure to thrive in adult Acute
[2018-09-04] MEDS: ESCITALOPRAM OXALATE 10 MG TAB PO SCH (21:06)
[2018-09-05] MEDS: VANCOMYCIN 125 MG/2.5 ML UDL PO SCH ×4 (06:05→21:19)
[2018-09-05] MEDS: NS 1,000 ML IV SCH ×2 (06:10→18:11)
[2018-09-05] MEDS: CALCIUM CARB W/VIT D 500 MG TAB PO SCH ×2 (09:40→21:19)
[2018-09-05] MEDS: guaiFENesin 600 MG TAB.ER PO SCH ×2 (09:41→21:19)
[2018-09-05] MEDS: predniSONE 10 MG TAB PO SCH (09:41)
[2018-09-05] MEDS: LOSARTAN POTASSIUM 50 MG TAB PO SCH (09:41)
[2018-09-05] MEDS: PANTOPRAZOLE SODIUM 40 MG TAB PO SCH (09:42)
[2018-09-05] MEDS: ATORVASTATIN CALCIUM 40 MG TAB PO SCH (09:42)
--- NOTE | 2018-09-05 09:51 | PCMIDPN ---
Assessment/Plan: Assessment: Probable C difficile colitis. Patient has clearly plateaued as far as his clinical status. He still has numerous loose stools although this is hard to quantify given that he has no rectal continence at baseline. This stool that is being produced is still quite liquid. We will continue oral vancomycin but wish to obtain an abd/pelvis CT to further evaluate possible etiologies. Plan: 1. Continue oral vancomycin at present dose. 2. Follow his clinical condition. 3. Abd/pel CT scan. 09/04/18 15:31 09/05/18 09:48 Subjective: Patient continues to have liquid stools. Feels poorly. Abdomen is bloated. He is "full" feeling after only a few spoonfuls of soup. Objective: po Vancomycin # 7 Vital Signs Temp Pulse Resp BP Pulse Ox 37.3 C 80 16 133/52 H 88 L 09/05/18 08:54 09/05/18 08:54 09/05/18 08:54 09/05/18 09:41 09/05/18 08:54 Laboratory Results 09/05/18 04:14 09/05/18 04:14 09/04/18 09/05/18 09/06/18 05:59 05:59 05:59 Intake Total 450 1594 1235 Output Total 750 1375 Balance -153 169 4798 - Physical Exam General Appearance: WD/WN, alert, no apparent distress, non-toxic, other (very fatigued ) Respiratory: lungs clear, normal breath sounds, No respiratory distress Cardiac/Chest: regular rate, rhythm, No tachycardia Abdomen: non-tender, soft, distended, No mass, No ascites Skin: normal color, warm/dry, No rash Neuro/Psych: alert, normal mood/affect, oriented x 3 ICD10 Worksheet Patient Problems: Problems Problem Status Onset Dehydration Acute Failure to thrive in adult Acute
[2018-09-05] MEDS: Fluticasone/Vilanterol [Breo Ellipta 100-25 Mcg Inh] 1 PUFFS IH SCH (10:23)
[2018-09-05] MEDS ORDERED: IOPAMIDOL (ISOVUE-300) 100 ML BTL ONE (12:02)
--- NOTE | 2018-09-05 12:46 | HOSPPROG ---
Hospitalist Progress Note Assessment/Plan: Patient is an 88 y/o male who has a hx of prostate ca, leukemia who presented w weakness. He was recently hospitalized at [facility] when he was visiting his children in [place]. He has been to the ER twice in [place] for dehydration. He was noted to be bacteremic w gram negative rods and treated w Zosyn during his hospital stay. He was dc on cipro and Metronidazole for a total of 14 days of treatment. The patient shared he has had ongoing diarrhea at home and has been taking Imodium without significant relief. * c diff colitis -on oral vancomycin, 250mg, continuing to have copious loose stools -kub, performed on 09/04, no obstruction -CT ordered by ID this morning to further evaluate given lack of significant clinical improvement despite PO Vancomycin -ID and GI following, recommendations appreciated -Rectal tube per RN today *weakness and dehydration -s/p IVF, continue mIVF for now given low PO intake *fever - none in 24 hours - possibly 2/2 ATX, C diff - blood cultures pending- NGTD *hypotension - cut his dose of Losartan in half (25 mg qd) and would continue this at dc - he can f/u with his PCP *acute kidney injury -resolved now returned - cont IVF - resolved, Cr 1.1 today *iron deficiency anemia, thrombocytopenia - no acute bleeding noted - S/p EGD which showed erosive gatropathy - will need to f/u with Dr Farhan hale pending labs - asa on hold - has had 3 days of IV iron - PPI daily *Rectal prolapse - resolved *hx of prostate ca & leukemia - likely not cause of the above, he has been recently seen and is stable *hypocalcemia - on calcium replacement - continue to monitor *concerns for gallbladder issues - ultrasound shows nothing acute - HIDA scan shows nothing acute w a good EF *Left leg edema that is chronic *CAD -asa & statin *Dispo: SNF for strengthening, pending clinical course Subjective: Patient sleeping at time of examination Objective: Vital Signs Temp Pulse Resp BP Pulse Ox 37.3 C 76 18 133/52 H 95 09/05/18 08:54 09/05/18 10:25 09/05/18 10:25 09/05/18 09:41 09/05/18 10:25 Laboratory Results 09/05/18 04:14 09/05/18 04:14 09/04/18 09/05/18 09/06/18 05:59 05:59 05:59 Intake Total 450 1594 1235 Output Total 750 1375 75 Balance -046 676 7687 PT 13.9 SEC (12.0-15.0) 08/27/18 17:58 INR 1.05 (0.83-1.16) 08/27/18 17:58 - Physical Exam Constitutional: chronically ill appearing, uncomfortable Ears, Nose, Mouth, Throat: moist mucous membranes Cardiovascular: regular rate and rhythym Respiratory: no respiratory distress Gastrointestinal: soft, non-tender abdomen, distension Skin: warm ICD10 Worksheet Patient Problems: Problems Problem Status Onset Dehydration Acute Failure to thrive in adult Acute
[2018-09-05] MEDS: ABIRATERONE 250 MG PO SCH ×2 (13:07→21:20)
[2018-09-05] MEDS: RANITIDINE SYRUP 15 MG/1 ML UDSYR PO SCH (18:10)
[2018-09-05] MEDS: ESCITALOPRAM OXALATE 10 MG TAB PO SCH (21:19)
[2018-09-06] MEDS: ZOLPIDEM TARTRATE 5 MG TAB PO PRN ×2 (00:23→22:19)
[2018-09-06] MEDS: NS 1,000 ML IV SCH ×2 (04:55→19:10)
[2018-09-06 06:16] LABS: PLATELET COUNT 80 10^3/uL (150-400)
[2018-09-06] MEDS: VANCOMYCIN 125 MG/2.5 ML UDL PO SCH ×4 (06:49→20:43)
[2018-09-06] MEDS: Fluticasone/Vilanterol [Breo Ellipta 100-25 Mcg Inh] 1 PUFFS IH SCH (08:59)
--- NOTE | 2018-09-06 10:12 | GIREPORT ---
[facility] Surgical Services - Endoscopy Department Patient Name: Jon Ruiz Procedure Date: 09/06/2018 9:24 AM Patient Type: Inpatient Attending MD/ ER Physician: Martin Garcia MD Procedure: Flexible Sigmoidoscopy Indications: Diarrhea of presumed infectious origin, (C. Diff) Diarrhea Providers: Martin Garcia MD Medicines: None Complications: No immediate complications. Description of Procedure: After obtaining informed consent, the endoscope was passed under direct vision. Throughout the procedure, the patient's blood pressure, pulse, and oxygen saturations were monitored continuously. The Colonoscope with irrigation channel was introduced through the anus and advanced to the sigmoid colon. The flexible sigmoidoscopy was accomplished without difficulty. The patient tolerated the procedure well. The quality of th e bowel preparation was adequate (unprepped). Findings: A diffuse pseudomembrane was found from rectum to sigmoid colon. This w as biopsied with a cold forceps for histology. Estimated Blood Loss: Estimated blood loss: none. Post Op Diagnosis: - Pseudomembranous enterocolitis. Recommendation: - Await pathology results. - Continue on PO Vancomycin and IV Flagyl - If no response to IV and oral antibiotics can consider fecal transpla nt. Not available at [facility]. Patient would need to be transferred to [facility] for this. - Thank you for allowing me to participate in the care of your patient. Attending Participation: I personally performed the entire procedure. Martin Garcia MD Martin Garcia MD 09/06/2018 10:12:06 AM This report has been signed electronicallyMartin Garcia MD Number of Addenda: 0 Note Initiated On: 09/06/2018 9:24 AM [email or web address]
[2018-09-06] MEDS: CALCIUM CARB W/VIT D 500 MG TAB PO SCH ×2 (10:49→20:44)
[2018-09-06] MEDS: ATORVASTATIN CALCIUM 40 MG TAB PO SCH (10:49)
[2018-09-06] MEDS: PANTOPRAZOLE SODIUM 40 MG TAB PO SCH (10:50)
[2018-09-06] MEDS: predniSONE 10 MG TAB PO SCH (10:54)
[2018-09-06] MEDS: LOSARTAN POTASSIUM 50 MG TAB PO SCH (10:55)
[2018-09-06] MEDS: guaiFENesin 600 MG TAB.ER PO SCH ×2 (10:55→20:44)
[2018-09-06] MEDS: ABIRATERONE 250 MG PO SCH ×2 (11:03→20:44)
--- NOTE | 2018-09-06 12:47 | HOSPPROG ---
Hospitalist Progress Note Assessment/Plan: Patient is an 88 y/o male who has a hx of prostate ca, leukemia who presented w weakness. He was recently hospitalized at [facility] when he was visiting his children in [place]. He has been to the ER twice in [place] for dehydration. He was noted to be bacteremic w gram negative rods and treated w Zosyn during his hospital stay. He was dc on cipro and Metronidazole for a total of 14 days of treatment. The patient shared he has had ongoing diarrhea at home and has been taking Imodium without significant relief. * c diff colitis -on oral vancomycin, 250mg, continuing to have copious loose stools -kub, performed on 09/04, no obstruction -CT performed on 09/05 shows nonspecific colitis involving the descending and rectosigmoid colon as well as sigmoid, no abscess/pneumoperitoneum -ID and GI following, recommendations appreciated, GI to perform flex sig today - Added IV Flagyl 500 mg TID on 09/05 given lack of improvement -Rectal tube per RN *weakness and dehydration -s/p IVF, continue mIVF for now given low PO intake - PT/OT *Superficial Thrombus, RUE - RUE U/S on 09/04 showed thrombus involving R cephalic vein extending from antecubital fossa to shoulder level - No indication for AC currently - Continue to monitor *fever - none in 24 hours - possibly 2/2 ATX, C diff - blood cultures pending- NGTD *hypotension - cut his dose of Losartan in half (25 mg qd) and would continue this at dc - he can f/u with his PCP *acute kidney injury -resolved now returned - cont IVF - resolved, Cr 1.0 today *iron deficiency anemia, thrombocytopenia - no acute bleeding noted - S/p EGD which showed erosive gatropathy - will need to f/u with Dr Farhan hale pending labs - asa on holdabs - has had 3 days of IV iron - PPI daily *Rectal prolapse - resolved *hx of prostate ca & leukemia - likely not cause of the above, he has been recently seen and is stable *hypocalcemia - on calcium replacement - continue to monitor *concerns for gallbladder issues - ultrasound shows nothing acute - HIDA scan shows nothing acute w a good EF *Left leg edema that is chronic *CAD -asa & statin *Dispo: SNF for strengthening, pending clinical course Objective: Vital Signs Temp Pulse Resp BP Pulse Ox 36.4 C 76 24 H 143/60 H 97 09/06/18 08:00 09/06/18 09:02 09/06/18 10:02 09/06/18 10:55 09/06/18 10:02 Laboratory Results 09/06/18 05:03 09/06/18 05:03 09/05/18 09/06/18 09/07/18 05:59 05:59 05:59 Intake Total 1594 3280 Output Total 1375 1625 Balance 219 1655 PT 13.9 SEC (12.0-15.0) 08/27/18 17:58 INR 1.05 (0.83-1.16) 08/27/18 17:58 ICD10 Worksheet Patient Problems: Problems Problem Status Onset Dehydration Acute Failure to thrive in adult Acute
[2018-09-06] MEDS: RANITIDINE SYRUP 15 MG/1 ML UDSYR PO SCH ×2 (12:56→18:01)
[2018-09-06] MEDS: ESCITALOPRAM OXALATE 10 MG TAB PO SCH (20:44)
[2018-09-07] MEDS: ZOLPIDEM TARTRATE 5 MG TAB PO PRN (02:14)
[2018-09-07 04:49] LABS: PLATELET COUNT 79 10^3/uL (150-400)
[2018-09-07] MEDS: VANCOMYCIN 125 MG/2.5 ML UDL PO SCH ×2 (05:36→12:35)
[2018-09-07] MEDS: CALCIUM CARB W/VIT D 500 MG TAB PO SCH ×2 (08:44→21:25)
[2018-09-07] MEDS: LOSARTAN POTASSIUM 50 MG TAB PO SCH (08:44)
[2018-09-07] MEDS: predniSONE 10 MG TAB PO SCH (08:44)
[2018-09-07] MEDS: PANTOPRAZOLE SODIUM 40 MG TAB PO SCH (08:44)
[2018-09-07] MEDS: ATORVASTATIN CALCIUM 40 MG TAB PO SCH (08:46)
[2018-09-07] MEDS: guaiFENesin 600 MG TAB.ER PO SCH ×2 (08:46→21:26)
[2018-09-07] MEDS: Fluticasone/Vilanterol [Breo Ellipta 100-25 Mcg Inh] 1 PUFFS IH SCH (10:30)
[2018-09-07] MEDS: ABIRATERONE 250 MG PO SCH ×2 (10:59→21:27)
--- NOTE | 2018-09-07 11:50 | WOCRNPDOC ---
WOCRN Advanced Assessment Note - Skin Integrity Problem, Advanced Assess Coccyx Pressure Injury Dressing Type: Open to Air Dressing Description: Intact Exudate Amount: None Chato Wound Tissue: Erythema, Non-blanching, Denuded (mild) Wound Bed Color: Herron Wound Bed Constitution: Red/Herron - Non Granular Tissue (100%) Wound Edges: Attached Site Measurement - Head-to-Toe Length X Width X Depth (cm): 0.4x0.2x0.2 Pressure Injury Stage: Stage 2 Pressure Injury Present on Admit: No Skin Integrity Problem Comment: Small partial thickness opening with chato anal and gluteal cleft denuded/tender(but intact) skin. Patient incontinent of stool and urine. Will upgrade bed to low air loss mattress. Please do not double chux and reduce layers under the patient. No need for mepilex sacral dressing until diarrhea is controlled. Wound care will round again next week. Nhan WALDEN in room for care/assessment.
--- NOTE | 2018-09-07 12:00 | ASMTCMCOM ---
CM Note CM Note Notes: Patient plan of care reviewed in rounds. He continues to have multiple loose bowel movements and remains weak and deconditioned To have rectal tube placed per nursing. CM to follow. Plan to SNF rehab when medically stable. Date Signed: 09/07/2018 11:59 AM Electronically Signed By:Kristen Barrientos RN
--- NOTE | 2018-09-07 14:06 | SOAPPROG ---
SOAP Progress Note Assessment/Plan: Assessment: C. Diff colitis. Maybe slight improvement. ID will d/c Vancomycin and switch to Dificid. Plan: 1. Continue supportive care 2. Continue on IV Flagyl, d/c vancomycin and start on Dificid (Fidaxomicin) 3. FMT if the above fails. FMT not available at [facility] via colonoscopy administration. However there have been some trials with oral FMT (pills or NGJ delivery). May need to talk to pharmacy regarding these options. (getting pills or NGJ preparations or colonic preparation) 09/07/18 13:53 Subjective: CC: Diarrhea Diarrhea may be slowing somewhat. However still with frequent BM's Objective: Vital Signs Temp Pulse Resp BP Pulse Ox 36.9 C 75 14 142/64 H 96 09/07/18 08:49 09/07/18 10:36 09/07/18 10:36 09/07/18 08:49 09/07/18 10:36 Microbiology 09/02/18 10:20 Blood Culture - Final Blood 09/02/18 10:00 Blood Culture - Final Blood Laboratory Results 09/07/18 04:22 09/07/18 04:22 09/06/18 09/07/18 09/08/18 05:59 05:59 05:59 Intake Total 3280 480 1948 Output Total 6016 411 0482 Balance 1655 80 948 PT 13.9 SEC (12.0-15.0) 08/27/18 17:58 INR 1.05 (0.83-1.16) 08/27/18 17:58 Generic Name Dose Route Start Last Admin Trade Name Enricoq PRN Reason Stop Dose Admin Acetaminophen 650 mg 08/27/18 21:07 09/04/18 05:07 Tylenol PO 02/23/19 21:06 650 mg Q4HRS PRN Administration Pain, Mild/Fever, Can Take PO Albuterol 2 puffs 08/27/18 21:09 Proventil Inhaler IH 02/23/19 21:08 Q4 PRN SHORTNESS OF BREATH Aspirin Buffered 81 mg 08/28/18 09:00 08/28/18 09:15 Aspirin Ec PO 02/24/19 08:59 81 mg DAILY LAURA Administration Atorvastatin Calcium 40 mg 08/28/18 09:00 09/07/18 08:46 Lipitor PO 02/24/19 08:59 40 mg DAILY LAURA Administration Calcium/Vitamin D 500 mg 08/30/18 11:15 09/07/18 08:44 Calcium Carb W/Vit D PO 02/26/19 11:14 500 mg BID LAURA Administration Escitalopram Oxalate 10 mg 08/30/18 21:00 09/06/18 20:44 Lexapro PO 02/24/19 08:59 10 mg HS LAURA Administration Guaifenesin 1,200 mg 08/28/18 09:00 09/07/18 08:46 Mucinex PO 02/24/19 08:59 1,200 mg BID LAURA Administration Sodium Chloride 1,000 mls @ 100 mls/hr 09/01/18 17:30 09/06/18 19:10 Ns IV 02/28/19 17:29 1,000 mls CONT LAURA Administration Metronidazole/Sodium Chloride 100 mls @ 100 mls/hr 09/05/18 16:15 09/07/18 08 :47 Flagyl 500 Mg (Premix) IV 10/05/18 16:14 100 mls Q8H LAURA Administration Protocol Losartan Potassium 25 mg 08/30/18 10:43 09/07/18 08:44 Cozaar PO 02/24/19 08:59 25 mg DAILY LAURA Administration Miscellaneous Medication 1 puffs 08/28/18 12:30 09/07/18 10:30 Fluticasone/Vilanterol [Breo Ellipta 100-25 Mcg Inh] IH 02/24/19 12:29 1 puffs DAILY LAURA Administration Miscellaneous Medication 3 mg 08/28/18 12:30 09/02/18 22:10 Eszopiclone [Eszopiclone] PO 3 mg HS PRN Administration INSOMNIA Miscellaneous Medication 500 mg 08/28/18 21:00 09/07/18 10:59 Zytiga 250mg Tab PO 02/24/19 20:59 500 mg BID LAURA Administration Miscellaneous Medication 200 ea 09/07/18 21:00 Non-Formulary PO 03/06/19 20:59 BID LAURA Ondansetron HCl 4 mg 08/27/18 21:07 09/01/18 05:18 Zofran IVP 02/23/19 21:06 4 mg Q4HRS PRN Administration Nausea/Vomiting, Can't Take PO Ondansetron HCl 4 mg 08/27/18 21:07 09/03/18 04:29 Zofran Odt PO 02/23/19 21:06 4 mg Q4HRS PRN Administration Nausea/Vomiting, Use 1st Pantoprazole Sodium 40 mg 08/30/18 09:00 09/07/18 08:44 Protonix PO 02/26/19 08:59 40 mg DAILY LAURA Administration Phenyleph/Shark Oil/Glycerin/Petrol 1 hua 08/31/18 10:54 09/01/18 20:18 Preparation H Cream DE 02/27/19 10:53 1 hua QID PRN Administration HEMORROIDS Prednisone 10 mg 08/28/18 09:00 09/07/18 08:44 Prednisone PO 02/24/19 08:59 10 mg DAILY LAURA Administration Ranitidine HCl 150 mg 09/06/18 18:00 09/06/18 18:01 Zantac PO 03/05/19 17:59 150 mg DAILY18 LAURA Administration Vancomycin HCl 250 mg 09/01/18 16:00 09/07/18 12:35 Vancocin Oral Liquid PO 10/01/18 15:59 250 mg QID LAURA Administration Protocol Zolpidem Tartrate 10 mg 08/27/18 21:09 09/07/18 02:14 Ambien PO 02/23/19 21:08 5 mg HS PRN Administration INSOMNIA Discontinued Medications Generic Name Dose Route Start Last Admin Trade Name Freq PRN Reason Stop Dose Admin Calcium Gluconate 1 dose 08/29/18 14:46 Protocol Calcium IV 02/25/19 14:45 AD PRN Pt on Electrolyte Protocol Protocol Ephedrine Sulfate Confirm 08/29/18 13:13 Ephedrine Sulfate Administered 08/29/18 13:14 Dose 25 mg .ROUTE .STK-MED ONE Ephedrine Sulfate 10 mg 08/29/18 13:41 Ephedrine Sulfate IV 08/29/18 14:41 .Q5M PRN PACU, Hypotension Escitalopram Oxalate 10 mg 08/28/18 09:00 08/29/18 09:13 Lexapro PO 02/24/19 08:59 10 mg DAILY LAURA Administration Gabapentin 100 mg 08/27/18 22:00 08/28/18 09:17 Neurontin PO 02/23/19 21:59 Not Given TID LAURA Sodium Chloride 1,000 mls @ 0 mls/hr 08/27/18 17:55 08/27/18 18:00 Ns IV 08/27/18 17:56 1,000 mls EDNOW ONE Administration Protocol Wide Open Sodium Chloride 1,000 mls @ 0 mls/hr 08/27/18 19:42 08/27/18 19:45 Ns IV 08/27/18 19:43 1,000 mls EDNOW ONE Administration Protocol Wide Open Sodium Chloride 1,000 mls @ 100 mls/hr 08/27/18 21:15 08/29/18 09:43 Ns IV 02/23/19 21:14 1,000 mls CONT LAURA Administration Ferric Sodium Gluconate 110 mls @ 110 mls/hr 08/28/18 10:00 08/30/18 08:52 Complex 125 mg/ Sodium IV 02/24/19 09:59 110 mls Chloride DAILY LAURA Administration Sodium Chloride 500 mls @ 0 mls/hr 08/29/18 13:41 Ns IV 08/29/18 14:41 PRN PRN PACU, Nausea/Vomiting Post-Op Wide Open Calcium Gluconate 50 mls @ 100 mls/hr 08/29/18 16:37 08/29/18 17:01 Calcium Gluconate 1 Gm (Premix) IV 08/29/18 17:06 50 mls ONCE ONE Administration Calcium Gluconate 50 mls @ 100 mls/hr 08/30/18 07:23 08/30/18 07:59 Calcium Gluconate 1 Gm (Premix) IV 08/30/18 07:52 50 mls ONCE ONE Administration Calcium Gluconate 50 mls @ 100 mls/hr 08/31/18 11:41 08/31/18 12:18 Calcium Gluconate 1 Gm (Premix) IV 08/31/18 12:10 50 mls ONCE ONE Administration Calcium Gluconate 50 mls @ 100 mls/hr 09/02/18 07:16 09/02/18 08:32 Calcium Gluconate 1 Gm (Premix) IV 09/02/18 07:45 50 mls ONCE ONE Administration Calcium Gluconate 50 mls @ 100 mls/hr 09/03/18 15:22 09/03/18 17:18 Calcium Gluconate 1 Gm (Premix) IV 09/03/18 15:51 Not Given ONCE ONE Iopamidol Confirm 09/05/18 12:02 Isovue-300 Administered 09/05/18 12:03 Dose 100 ml .ROUTE .STK-MED ONE Lorazepam 0.25 mg 09/01/18 01:37 09/01/18 05:17 Ativan PO 09/01/18 01:38 0.25 mg ONCE ONE Administration Losartan Potassium 50 mg 08/28/18 09:00 08/30/18 08:58 Cozaar PO 02/24/19 08:59 50 mg DAILY LAURA Administration Metoclopramide HCl 10 mg 08/29/18 13:41 Reglan Injection IVP 08/29/18 14:41 ONCE PRN PACU, Nausea/Vomiting Miscellaneous Medication 1,000 mg 08/28/18 09:00 08/28/18 12:17 Abiraterone Acetate [Zytiga] PO 02/24/19 08:59 Not Given DAILY LAURA Miscellaneous Medication 60 mg 08/28/18 09:00 08/29/18 09:18 Dexlansoprazole [Dexilant] PO 02/24/19 08:59 60 mg DAILY LAURA Administration Miscellaneous Medication 3 mg 08/27/18 21:09 Eszopiclone [Eszopiclone] PO HS PRN INSOMNIA Miscellaneous Medication 1 puffs 08/28/18 09:00 08/28/18 09:25 Fluticasone/Vilanterol [Breo Ellipta 200-25 Mcg Inh] IH 02/24/19 08:59 Not Given DAILY LAURA Ondansetron HCl 4 mg 08/27/18 17:55 08/27/18 18:01 Zofran IVP 08/27/18 17:56 4 mg EDNOW ONE Administration Ondansetron HCl 2 - 4 mg 08/29/18 13:41 Zofran IVP 08/29/18 14:41 Q10M PRN PACU, Nausea/Vomiting Pantoprazole Sodium 40 mg 08/28/18 10:30 08/28/18 12:16 Protonix PO 02/24/19 10:29 Not Given DAILY LAURA Pantoprazole Sodium 40 mg 08/28/18 16:30 08/29/18 09:26 Protonix IVP 02/24/19 16:29 40 mg BID LAURA Administration Pantoprazole Sodium 40 mg 08/29/18 21:00 Protonix PO 02/25/19 20:59 BID LAURA Phenylephrine HCl Confirm 08/29/18 13:13 Neosynephrine Administered 08/29/18 13:14 Dose 1,000 mcg .ROUTE .STK-MED ONE Phenylephrine HCl 100 mcg 08/29/18 13:41 Neosynephrine IVP 08/29/18 14:41 .Q2M PRN PACU, Hypotension Propofol Confirm 08/29/18 12:46 Diprivan Administered 08/29/18 12:47 Dose 200 mg .ROUTE .STK-MED ONE Propofol Confirm 08/29/18 12:46 Diprivan Administered 08/29/18 12:47 Dose 200 mg .ROUTE .STK-MED ONE Ranitidine HCl 150 mg 09/05/18 18:00 09/06/18 12:56 Zantac PO 03/04/19 17:59 Not Given DAILY LAURA Sincalide Confirm 08/28/18 15:54 Kinevac Administered 08/28/18 15:55 Dose 5 mcg IV .STK-MED ONE Vancomycin HCl 125 mg 08/29/18 16:00 09/01/18 13:17 Vancocin Oral Liquid PO 09/28/18 15:59 125 mg QID LAURA Administration Protocol Physical Exam - Physical Exam General Appearance: alert, no apparent distress Respiratory: lungs clear, normal breath sounds Cardiac/Chest: normal peripheral pulses, regular rate, rhythm Abdomen: normal bowel sounds, non-tender, soft Skin: normal color, warm/dry Neuro/Psych: alert, normal mood/affect, oriented x 3 ICD10 Worksheet Patient Problems: Problems Problem Status Onset Dehydration Acute Failure to thrive in adult Acute
--- NOTE | 2018-09-07 14:42 | HOSPPROG ---
Hospitalist Progress Note Assessment/Plan: Patient is an 88 y/o male who has a hx of prostate ca, leukemia who presented w weakness. He was recently hospitalized at [facility] when he was visiting his children in [place]. He has been to the ER twice in [place] for dehydration. He was noted to be bacteremic w gram negative rods and treated w Zosyn during his hospital stay. He was dc on cipro and Metronidazole for a total of 14 days of treatment. The patient shared he has had ongoing diarrhea at home and has been taking Imodium without significant relief. * c diff colitis -has been on oral vancomycin, 250mg (increased from 125 mg QID), continuing to have copious loose stools -kub, performed on 09/04, no obstruction -CT performed on 09/05 shows nonspecific colitis involving the descending and rectosigmoid colon as well as sigmoid, no abscess/pneumoperitoneum -ID and GI following, recommendations appreciated, GI performed flex sig on 09/06 which showed pseudomembraneous colitis -Added IV Flagyl 500 mg TID on 09/05 given lack of improvement -Rectal tube per RN - Discussed with ID and GI today, they plan on switching from PO Vancomycin to Dificid (Fidaxomicin), also recommending FMT if the above fails (which is not available at [facility] per GI) *weakness and dehydration -s/p IVF, continue mIVF for now given low PO intake - PT/OT *Superficial Thrombus, RUE - RUE U/S on 09/04 showed thrombus involving R cephalic vein extending from antecubital fossa to shoulder level - No indication for AC currently - Continue to monitor *fever - none in 24 hours - possibly 2/2 ATX, C diff - blood cultures pending- NGTD *hypotension - cut his dose of Losartan in half (25 mg qd) and would continue this at dc - he can f/u with his PCP *acute kidney injury -resolved now returned - cont IVF - resolved, Cr 1.0 today *iron deficiency anemia, thrombocytopenia - no acute bleeding noted - S/p EGD which showed erosive gatropathy - will need to f/u with Dr Farhan hale pending labs - asa on holdabs - has had 3 days of IV iron - PPI daily - Continue to monitor CBC *Rectal prolapse - resolved *hx of prostate ca & leukemia - likely not cause of the above, he has been recently seen and is stable *hypocalcemia - on calcium replacement - continue to monitor *concerns for gallbladder issues - ultrasound shows nothing acute - HIDA scan shows nothing acute w a good EF *Left leg edema that is chronic *CAD -asa & statin *Dispo: SNF for strengthening, pending clinical course Subjective: Patient reports 2 large loose BMs this morning Objective: Vital Signs Temp Pulse Resp BP Pulse Ox 36.9 C 75 14 142/64 H 96 09/07/18 08:49 09/07/18 10:36 09/07/18 10:36 09/07/18 08:49 09/07/18 10:36 Microbiology 09/02/18 10:20 Blood Culture - Final Blood 09/02/18 10:00 Blood Culture - Final Blood Laboratory Results 09/07/18 04:22 09/07/18 04:22 09/06/18 09/07/18 09/08/18 05:59 05:59 05:59 Intake Total 3280 480 1948 Output Total 6214 624 1849 Balance 1655 80 948 PT 13.9 SEC (12.0-15.0) 08/27/18 17:58 INR 1.05 (0.83-1.16) 08/27/18 17:58 - Physical Exam Constitutional: chronically ill appearing Eyes: PERRL Ears, Nose, Mouth, Throat: moist mucous membranes Cardiovascular: regular rate and rhythym Respiratory: no respiratory distress Gastrointestinal: soft, non-tender abdomen Skin: warm Musculoskeletal: generalized weakness Neurologic: AAOx3 Psychiatric: interacting appropriately ICD10 Worksheet Patient Problems: Problems Problem Status Onset Dehydration Acute Failure to thrive in adult Acute
--- NOTE | 2018-09-07 14:52 | PCMIDPN ---
Assessment/Plan: Assessment/Plan: * Refractory C difficile colitis: C difficile colitis confirmed by flexible sigmoidoscopy showing pseudomembranes. Patient with persistent diarrhea despite oral vancomycin and IV metronidazole. Will change oral vancomycin to fidaxomicin to see if improved clinical response (pharmacy will order) and continue IV metronidazole. If fails to improve with fidaxomicin, next step would be fecal transplant. Clinical findings and plan were discussed with Dr. Garcia, patient, and . 09/07/18 14:50 Subjective: Patient with persistent diarrhea. Now has rectal tube in place. Continued poor appetite and lack of energy. Objective: Vital Signs Temp Pulse Resp BP Pulse Ox 36.9 C 75 14 142/64 H 96 09/07/18 08:49 09/07/18 10:36 09/07/18 10:36 09/07/18 08:49 09/07/18 10:36 Microbiology 09/02/18 10:20 Blood Culture - Final Blood 09/02/18 10:00 Blood Culture - Final Blood Laboratory Results 09/07/18 04:22 09/07/18 04:22 09/06/18 09/07/18 09/08/18 05:59 05:59 05:59 Intake Total 3280 480 1948 Output Total 8655 851 7110 Balance 1655 80 948 Oral vancomycin # 9 IV metronidazole # 3 - Physical Exam General Appearance: alert, non-toxic EENT: No scleral icterus, No thrush Respiratory: lungs clear, No respiratory distress Cardiac/Chest: regular rate, rhythm, No systolic murmur Extremities: No inflammation Abdomen: non-tender, distended (Mild) Skin: No rash - Time Spent With Patient Time Spent with Patient: greater than 25 minutes Time Spent with Patient: Greater than 25 minutes spent on this patients care, greater than 50% of time spent counseling, educating, and coordinating care regarding the above mentioned plan. ICD10 Worksheet Patient Problems: Problems Problem Status Onset Dehydration Acute Failure to thrive in adult Acute
[2018-09-07] MEDS: FIDAXOMICIN 200 MG TAB PO SCH ×2 (15:37→21:26)
[2018-09-07] MEDS: RANITIDINE SYRUP 15 MG/1 ML UDSYR PO SCH (18:56)
[2018-09-07] MEDS ORDERED: FIDAXOMICIN 200 MG TAB PO SCH (21:00)
[2018-09-07] MEDS: ESCITALOPRAM OXALATE 10 MG TAB PO SCH (21:25)
[2018-09-08] MEDS: NS 1,000 ML IV SCH ×2 (00:15→10:39)
[2018-09-08] MEDS: ZOLPIDEM TARTRATE 5 MG TAB PO PRN (04:09)
[2018-09-08 05:39] LABS: PLATELET COUNT 94 10^3/uL (150-400)
--- NOTE | 2018-09-08 08:34 | SOAPPROG ---
SOAP Progress Note Assessment/Plan: Assessment: C. Diff colitis. Diarrhea seems to be improved. Currently on Fidaxomicin and Metronidazole. Plan: 1. Continue supportive care 2. Continue current treatment/abx for c. diff Please let me know if not improved or requires treatment with FMT. Thank you 09/08/18 08:31 Subjective: CC: Diarrhea, C. Diff Improved from yesterday with less diarrhea Objective: Vital Signs Temp Pulse Resp BP Pulse Ox 36.8 C 72 16 157/71 H 92 09/08/18 08:26 09/08/18 08:26 09/08/18 08:26 09/08/18 08:26 09/08/18 08:26 Microbiology 09/02/18 10:20 Blood Culture - Final Blood 09/02/18 10:00 Blood Culture - Final Blood Laboratory Results 09/08/18 05:14 09/08/18 05:14 09/07/18 09/08/18 09/09/18 05:59 05:59 05:59 Intake Total 480 3548 Output Total 400 1950 Balance 80 1598 PT 13.9 SEC (12.0-15.0) 08/27/18 17:58 INR 1.05 (0.83-1.16) 08/27/18 17:58 Generic Name Dose Route Start Last Admin Trade Name Kathy PRN Reason Stop Dose Admin Acetaminophen 650 mg 08/27/18 21:07 09/04/18 05:07 Tylenol PO 02/23/19 21:06 650 mg Q4HRS PRN Administration Pain, Mild/Fever, Can Take PO Albuterol 2 puffs 08/27/18 21:09 Proventil Inhaler IH 02/23/19 21:08 Q4 PRN SHORTNESS OF BREATH Aspirin Buffered 81 mg 08/28/18 09:00 08/28/18 09:15 Aspirin Ec PO 02/24/19 08:59 81 mg DAILY LAURA Administration Atorvastatin Calcium 40 mg 08/28/18 09:00 09/07/18 08:46 Lipitor PO 02/24/19 08:59 40 mg DAILY LAURA Administration Calcium/Vitamin D 500 mg 08/30/18 11:15 09/07/18 21:25 Calcium Carb W/Vit D PO 02/26/19 11:14 500 mg BID LAURA Administration Escitalopram Oxalate 10 mg 08/30/18 21:00 09/07/18 21:25 Lexapro PO 02/24/19 08:59 10 mg HS LAURA Administration Fidaxomicin 200 mg 09/07/18 15:15 09/07/18 21:26 Dificid PO 10/07/18 15:14 200 mg BID LAURA Administration Guaifenesin 1,200 mg 08/28/18 09:00 09/07/18 21:26 Mucinex PO 02/24/19 08:59 1,200 mg BID LAURA Administration Sodium Chloride 1,000 mls @ 100 mls/hr 09/01/18 17:30 09/08/18 00:15 Ns IV 02/28/19 17:29 1,000 mls CONT LAURA Administration Metronidazole/Sodium Chloride 100 mls @ 100 mls/hr 09/05/18 16:15 09/08/18 00 :15 Flagyl 500 Mg (Premix) IV 10/05/18 16:14 100 mls Q8H LAURA Administration Protocol Losartan Potassium 25 mg 08/30/18 10:43 09/07/18 08:44 Cozaar PO 02/24/19 08:59 25 mg DAILY LAURA Administration Miscellaneous Medication 1 puffs 08/28/18 12:30 09/07/18 10:30 Fluticasone/Vilanterol [Breo Ellipta 100-25 Mcg Inh] IH 02/24/19 12:29 1 puffs DAILY LAURA Administration Miscellaneous Medication 3 mg 08/28/18 12:30 09/02/18 22:10 Eszopiclone [Eszopiclone] PO 3 mg HS PRN Administration INSOMNIA Miscellaneous Medication 500 mg 08/28/18 21:00 09/07/18 21:27 Zytiga 250mg Tab PO 02/24/19 20:59 500 mg BID LAURA Administration Ondansetron HCl 4 mg 08/27/18 21:07 09/01/18 05:18 Zofran IVP 02/23/19 21:06 4 mg Q4HRS PRN Administration Nausea/Vomiting, Can't Take PO Ondansetron HCl 4 mg 08/27/18 21:07 09/03/18 04:29 Zofran Odt PO 02/23/19 21:06 4 mg Q4HRS PRN Administration Nausea/Vomiting, Use 1st Pantoprazole Sodium 40 mg 08/30/18 09:00 09/07/18 08:44 Protonix PO 02/26/19 08:59 40 mg DAILY LAURA Administration Phenyleph/Shark Oil/Glycerin/Petrol 1 hua 08/31/18 10:54 09/01/18 20:18 Preparation H Cream MT 02/27/19 10:53 1 hua QID PRN Administration HEMORROIDS Prednisone 10 mg 08/28/18 09:00 09/07/18 08:44 Prednisone PO 02/24/19 08:59 10 mg DAILY LAURA Administration Ranitidine HCl 150 mg 09/06/18 18:00 09/07/18 18:56 Zantac PO 03/05/19 17:59 150 mg DAILY18 LAURA Administration Zolpidem Tartrate 10 mg 08/27/18 21:09 09/08/18 04:09 Ambien PO 02/23/19 21:08 10 mg HS PRN Administration INSOMNIA Discontinued Medications Generic Name Dose Route Start Last Admin Trade Name Freq PRN Reason Stop Dose Admin Calcium Gluconate 1 dose 08/29/18 14:46 Protocol Calcium IV 02/25/19 14:45 AD PRN Pt on Electrolyte Protocol Protocol Ephedrine Sulfate Confirm 08/29/18 13:13 Ephedrine Sulfate Administered 08/29/18 13:14 Dose 25 mg .ROUTE .STK-MED ONE Ephedrine Sulfate 10 mg 08/29/18 13:41 Ephedrine Sulfate IV 08/29/18 14:41 .Q5M PRN PACU, Hypotension Escitalopram Oxalate 10 mg 08/28/18 09:00 08/29/18 09:13 Lexapro PO 02/24/19 08:59 10 mg DAILY LAURA Administration Fidaxomicin 200 mg 09/07/18 21:00 Dificid PO 10/07/18 20:59 BID LAURA Gabapentin 100 mg 08/27/18 22:00 08/28/18 09:17 Neurontin PO 02/23/19 21:59 Not Given TID LAURA Sodium Chloride 1,000 mls @ 0 mls/hr 08/27/18 17:55 08/27/18 18:00 Ns IV 08/27/18 17:56 1,000 mls EDNOW ONE Administration Protocol Wide Open Sodium Chloride 1,000 mls @ 0 mls/hr 08/27/18 19:42 08/27/18 19:45 Ns IV 08/27/18 19:43 1,000 mls EDNOW ONE Administration Protocol Wide Open Sodium Chloride 1,000 mls @ 100 mls/hr 08/27/18 21:15 08/29/18 09:43 Ns IV 02/23/19 21:14 1,000 mls CONT LAURA Administration Ferric Sodium Gluconate 110 mls @ 110 mls/hr 08/28/18 10:00 08/30/18 08:52 Complex 125 mg/ Sodium IV 02/24/19 09:59 110 mls Chloride DAILY LAURA Administration Sodium Chloride 500 mls @ 0 mls/hr 08/29/18 13:41 Ns IV 08/29/18 14:41 PRN PRN PACU, Nausea/Vomiting Post-Op Wide Open Calcium Gluconate 50 mls @ 100 mls/hr 08/29/18 16:37 08/29/18 17:01 Calcium Gluconate 1 Gm (Premix) IV 08/29/18 17:06 50 mls ONCE ONE Administration Calcium Gluconate 50 mls @ 100 mls/hr 08/30/18 07:23 08/30/18 07:59 Calcium Gluconate 1 Gm (Premix) IV 08/30/18 07:52 50 mls ONCE ONE Administration Calcium Gluconate 50 mls @ 100 mls/hr 08/31/18 11:41 08/31/18 12:18 Calcium Gluconate 1 Gm (Premix) IV 08/31/18 12:10 50 mls ONCE ONE Administration Calcium Gluconate 50 mls @ 100 mls/hr 09/02/18 07:16 09/02/18 08:32 Calcium Gluconate 1 Gm (Premix) IV 09/02/18 07:45 50 mls ONCE ONE Administration Calcium Gluconate 50 mls @ 100 mls/hr 09/03/18 15:22 09/03/18 17:18 Calcium Gluconate 1 Gm (Premix) IV 09/03/18 15:51 Not Given ONCE ONE Iopamidol Confirm 09/05/18 12:02 Isovue-300 Administered 09/05/18 12:03 Dose 100 ml .ROUTE .STK-MED ONE Lorazepam 0.25 mg 09/01/18 01:37 09/01/18 05:17 Ativan PO 09/01/18 01:38 0.25 mg ONCE ONE Administration Losartan Potassium 50 mg 08/28/18 09:00 08/30/18 08:58 Cozaar PO 02/24/19 08:59 50 mg DAILY LAURA Administration Metoclopramide HCl 10 mg 08/29/18 13:41 Reglan Injection IVP 08/29/18 14:41 ONCE PRN PACU, Nausea/Vomiting Miscellaneous Medication 1,000 mg 08/28/18 09:00 08/28/18 12:17 Abiraterone Acetate [Zytiga] PO 02/24/19 08:59 Not Given DAILY LAURA Miscellaneous Medication 60 mg 08/28/18 09:00 08/29/18 09:18 Dexlansoprazole [Dexilant] PO 02/24/19 08:59 60 mg DAILY LAURA Administration Miscellaneous Medication 3 mg 08/27/18 21:09 Eszopiclone [Eszopiclone] PO HS PRN INSOMNIA Miscellaneous Medication 1 puffs 08/28/18 09:00 08/28/18 09:25 Fluticasone/Vilanterol [Breo Ellipta 200-25 Mcg Inh] IH 02/24/19 08:59 Not Given DAILY LAURA Ondansetron HCl 4 mg 08/27/18 17:55 08/27/18 18:01 Zofran IVP 08/27/18 17:56 4 mg EDNOW ONE Administration Ondansetron HCl 2 - 4 mg 08/29/18 13:41 Zofran IVP 08/29/18 14:41 Q10M PRN PACU, Nausea/Vomiting Pantoprazole Sodium 40 mg 08/28/18 10:30 08/28/18 12:16 Protonix PO 02/24/19 10:29 Not Given DAILY LAURA Pantoprazole Sodium 40 mg 08/28/18 16:30 08/29/18 09:26 Protonix IVP 02/24/19 16:29 40 mg BID LAURA Administration Pantoprazole Sodium 40 mg 08/29/18 21:00 Protonix PO 02/25/19 20:59 BID LAURA Phenylephrine HCl Confirm 08/29/18 13:13 Neosynephrine Administered 08/29/18 13:14 Dose 1,000 mcg .ROUTE .STK-MED ONE Phenylephrine HCl 100 mcg 08/29/18 13:41 Neosynephrine IVP 08/29/18 14:41 .Q2M PRN PACU, Hypotension Propofol Confirm 08/29/18 12:46 Diprivan Administered 08/29/18 12:47 Dose 200 mg .ROUTE .STK-MED ONE Propofol Confirm 08/29/18 12:46 Diprivan Administered 08/29/18 12:47 Dose 200 mg .ROUTE .STK-MED ONE Ranitidine HCl 150 mg 09/05/18 18:00 09/06/18 12:56 Zantac PO 03/04/19 17:59 Not Given DAILY LAURA Sincalide Confirm 08/28/18 15:54 Kinevac Administered 08/28/18 15:55 Dose 5 mcg IV .STK-MED ONE Vancomycin HCl 125 mg 08/29/18 16:00 09/01/18 13:17 Vancocin Oral Liquid PO 09/28/18 15:59 125 mg QID LAURA Administration Protocol Vancomycin HCl 250 mg 09/01/18 16:00 09/07/18 12:35 Vancocin Oral Liquid PO 10/01/18 15:59 250 mg QID LAURA Administration Protocol Physical Exam - Physical Exam General Appearance: alert, no apparent distress Respiratory: lungs clear, normal breath sounds Abdomen: normal bowel sounds, non-tender, soft Skin: normal color, warm/dry Neuro/Psych: alert, normal mood/affect, oriented x 3 ICD10 Worksheet Patient Problems: Problems Problem Status Onset Dehydration Acute Failure to thrive in adult Acute
[2018-09-08] MEDS: Fluticasone/Vilanterol [Breo Ellipta 100-25 Mcg Inh] 1 PUFFS IH SCH (08:41)
[2018-09-08] MEDS: PANTOPRAZOLE SODIUM 40 MG TAB PO SCH (09:02)
[2018-09-08] MEDS: guaiFENesin 600 MG TAB.ER PO SCH ×2 (09:02→22:12)
[2018-09-08] MEDS: predniSONE 10 MG TAB PO SCH (09:02)
[2018-09-08] MEDS: ATORVASTATIN CALCIUM 40 MG TAB PO SCH (09:02)
[2018-09-08] MEDS: CALCIUM CARB W/VIT D 500 MG TAB PO SCH ×2 (09:02→22:12)
[2018-09-08] MEDS: LOSARTAN POTASSIUM 50 MG TAB PO SCH (09:03)
--- NOTE | 2018-09-08 10:14 | HOSPPROG ---
Hospitalist Progress Note Assessment/Plan: 88 y/o male w hx of prostate ca, leukemia who presented w weakness. He was recently hospitalized at [facility] when he was visiting his children in [place]. He has been to the ER twice in [place] for dehydration. He was noted to be bacteremic w gram negative rods and treated w Zosyn during his hospital stay. He was dc'd on cipro and Metronidazole for a total of 14 days of treatment. Now with ongoing C diff colitis. * c diff colitis - not improving on high dose vanco. KUB 09/04, no obstruction. CT 09/05, nonspecific colitis of descending and rectosigmoid colon , no abscess/pneumoperitoneum. GI performed flex sig on 09/06 which showed pseudomembraneous colitis -changed to dificid per ID, cont iv flagyl -ID and GI following -Cont rectal tube -may need fecal transplant if not improving with change to dificid *weakness and dehydration -s/p IVF, continue mIVF for now given low PO intake - PT/OT *Superficial Thrombus, RUE U/S on 09/04 showed thrombus involving R cephalic vein extending from antecubital fossa to shoulder level - No indication for AC currently - Continue to monitor *fever - possibly 2/2 C diff - blood cultures NGTD *hypotension - cut his dose of Losartan in half (25 mg qd) and would continue this at tx - he can f/u with his PCP *acute kidney injury - resolved *iron deficiency anemia, thrombocytopenia - no e/o bleeding. S/p EGD which showed erosive gastropathy - asa on hold - has had 3 days of IV iron - cont PPI - monitor *Rectal prolapse - resolved *hx of prostate ca & leukemia - likely not cause of the above, he has been recently seen and is stable *hypocalcemia - on calcium replacement - continue to monitor *concerns for gallbladder issues - ultrasound shows nothing acute - HIDA scan shows nothing acute w a good EF *Left leg edema that is chronic *CAD -asa & statin *Dispo: cont inpt, likely dc to SNF for strengthening, ADD uncertain Subjective: Pt had nausea/ vomiting this am. This passed quickly. No more fevers. Still having copious output from rectal tube. Denies abdominal pain. Objective: Vital Signs Temp Pulse Resp BP Pulse Ox 36.8 C 78 16 157/71 H 91 L 09/08/18 08:26 12/04/18 08:42 09/08/18 08:42 09/08/18 09:03 09/08/18 08:42 Microbiology 09/02/18 10:20 Blood Culture - Final Blood 09/02/18 10:00 Blood Culture - Final Blood Laboratory Results 09/08/18 05:14 09/08/18 05:14 09/07/18 09/08/18 09/09/18 05:59 05:59 05:59 Intake Total 480 3548 Output Total 400 1950 Balance 80 1598 PT 13.9 SEC (12.0-15.0) 08/27/18 17:58 INR 1.05 (0.83-1.16) 08/27/18 17:58 - Physical Exam Constitutional: no apparent distress Eyes: PERRL Ears, Nose, Mouth, Throat: moist mucous membranes Cardiovascular: regular rate and rhythym Respiratory: no respiratory distress, clear to auscultation Gastrointestinal: normoactive bowel sounds, other (soft, mild distention, no r/r /g, +BS) Skin: warm Musculoskeletal: full muscle strength Neurologic: AAOx3 Psychiatric: interacting appropriately ICD10 Worksheet Patient Problems: Problems Problem Status Onset Dehydration Acute Failure to thrive in adult Acute
--- NOTE | 2018-09-08 10:46 | PCMIDPN ---
Assessment/Plan: Assessment/Plan: * Refractory C difficile colitis: C difficile colitis confirmed by flexible sigmoidoscopy showing pseudomembranes. Rectal tube with 100 mL of stool over last 24 hr. Will continue fidaxomicin and IV metronidazole and follow stool output. If does not respond or improve over next 48 hr, likely will need fecal transplantation to achieve resolution of C difficile colitis. May need to address supplemental nutrition as nutritional intake is limited. Clinical findings and plan reviewed with patient and today. 09/08/18 10:43 09/08/18 10:47 Subjective: Patient complains of fatigue but feels like he may overall be slightly better. No abdominal pain. Objective: Vital Signs Temp Pulse Resp BP Pulse Ox 36.8 C 78 16 157/71 H 91 L 09/08/18 08:26 09/08/18 08:42 09/08/18 08:42 09/08/18 09:03 09/08/18 08:42 Microbiology 09/02/18 10:20 Blood Culture - Final Blood 09/02/18 10:00 Blood Culture - Final Blood Laboratory Results 09/08/18 05:14 09/08/18 05:14 09/07/18 09/08/18 09/09/18 05:59 05:59 05:59 Intake Total 480 3548 Output Total 400 1950 Balance 80 1598 Fidaxomicin # 1 IV metronidazole #4 C diff therapy # 10 - Physical Exam General Appearance: alert, no apparent distress, other (Fatigued appearance) EENT: No scleral icterus, No thrush Respiratory: lungs clear, No respiratory distress Cardiac/Chest: regular rate, rhythm Extremities: other (Right upper extremity phlebitis resolved) Abdomen: non-tender, distended (Mild to moderate) ICD10 Worksheet Patient Problems: Problems Problem Status Onset Dehydration Acute Failure to thrive in adult Acute
[2018-09-08] MEDS: ABIRATERONE 250 MG PO SCH ×2 (10:56→22:59)
[2018-09-08] MEDS: FIDAXOMICIN 200 MG TAB PO SCH ×2 (10:56→22:58)
[2018-09-08] MEDS: RANITIDINE SYRUP 15 MG/1 ML UDSYR PO SCH (18:15)
[2018-09-08] MEDS: ACETAMINOPHEN 325 MG TAB PO PRN (22:12)
[2018-09-08] MEDS: ESCITALOPRAM OXALATE 10 MG TAB PO SCH (22:12)
[2018-09-08] MEDS: ZOLPIDEM TARTRATE 5 MG TAB PO SCH (22:59)
[2018-09-09] MEDS: NS 1,000 ML IV SCH (03:44)
[2018-09-09] MEDS ORDERED: PROTOCOL POTASSIUM 1 DOSE MISC PRN (06:17)
--- NOTE | 2018-09-09 09:33 | PCMIDPN ---
Assessment/Plan: Assessment/Plan: * Refractory C difficile colitis: Has completed 2 days of fidaxomicin. Perhaps slight improvement today. Approximately 200 mL of liquid stool since 11 :00 p.m. Last night (approximately 600 mL since placement of rectal tube). Continue fidaxomicin and IV metronidazole. Will check quantitative immunoglobulin levels as this would be other potential contributor to lack of improvement. If fails to show interval improvement over next 24 hr, think will need to assess for transfer to facility with capacity for fecal transplantation. No clinical findings to suggest toxic megacolon. 09/09/18 09:30 09/09/18 09:35 Subjective: Patient states he feels a little better with increased energy. Still without appetite. Liquid stool in rectal tube although may have some loose form present in upper rectal tube. No abdominal pain, nausea or vomiting. Objective: Vital Signs Temp Pulse Resp BP Pulse Ox 36.4 C 70 16 153/67 H 93 09/09/18 08:00 09/09/18 08:00 09/09/18 08:00 09/09/18 08:00 09/09/18 08:00 Laboratory Results 09/09/18 07:09 09/09/18 07:09 09/08/18 09/09/18 09/10/18 05:59 05:59 05:59 Intake Total 3548 2308 Output Total 1950 900 Balance 1598 1408 Fidaxomicin # 3 IV metronidazole # 5 C difficile therapy # 10 Liquid stool output 400 mL over 24 hr - Physical Exam General Appearance: alert, no apparent distress, non-toxic EENT: No scleral icterus, No thrush Respiratory: lungs clear, No respiratory distress Cardiac/Chest: regular rate, rhythm Extremities: inflammation (Right upper extremity phlebitis resolving) Abdomen: non-tender, distended (Less prominent than yesterday) Neuro/Psych: No confused ICD10 Worksheet Patient Problems: Problems Problem Status Onset Dehydration Acute Failure to thrive in adult Acute
--- NOTE | 2018-09-09 10:27 | HOSPPROG ---
Hospitalist Progress Note Assessment/Plan: 88 y/o male w hx of prostate ca, leukemia who presented w weakness. He was recently hospitalized at [facility] when he was visiting his children in [place]. He has been to the ER twice in [place] for dehydration. He was noted to be bacteremic w gram negative rods and treated w Zosyn during his hospital stay. He was dc'd on cipro and Metronidazole for a total of 14 days of treatment. Now with ongoing C diff colitis. * c diff colitis - not improving on high dose vanco. KUB 09/04, no obstruction. CT 09/05, nonspecific colitis of descending and rectosigmoid colon , no abscess/pneumoperitoneum. GI performed flex sig on 09/06 which showed pseudomembraneous colitis -cont dificid and iv flagyl -ID and GI following -Cont rectal tube -may need fecal transplant if not improving with change to dificid in next day or so *weakness and dehydration - cont ivf with poor oral intake - dietary consult - PT/OT *Superficial Thrombus, RUE U/S on 09/04 showed thrombus involving R cephalic vein extending from antecubital fossa to shoulder level - No indication for AC currently - Continue to monitor *fever - possibly 2/2 C diff - blood cultures NGTD *hypotension - cut his dose of Losartan in half (25 mg qd) and would continue this at dc - he can f/u with his PCP *acute kidney injury - resolved *iron deficiency anemia, thrombocytopenia - no e/o bleeding. S/p EGD which showed erosive gastropathy - asa on hold - has had 3 days of IV iron - cont PPI - monitor *Rectal prolapse - resolved *hx of prostate ca & leukemia - likely not cause of the above, he has been recently seen and is stable *hypocalcemia - on calcium replacement - continue to monitor *concerns for gallbladder issues - ultrasound shows nothing acute - HIDA scan shows nothing acute w a good EF *Left leg edema that is chronic *CAD -asa & statin *DVT PPLX - start lovenox, plts now ~100K, monitor *Dispo: cont inpt, likely dc to SNF for strengthening, ADD uncertain Subjective: Pt doing ok, feels weak and tired. Denies abdominal pain, N/V. No fevers. Wants to know when he'll be able to go home. Objective: Vital Signs Temp Pulse Resp BP Pulse Ox 36.4 C 70 16 153/67 H 93 09/09/18 08:00 09/09/18 08:00 09/09/18 08:00 09/09/18 08:00 09/09/18 08:00 Laboratory Results 09/09/18 07:09 09/09/18 07:09 09/08/18 09/09/18 09/10/18 05:59 05:59 05:59 Intake Total 3548 2308 Output Total 1950 900 Balance 1598 1408 PT 13.9 SEC (12.0-15.0) 08/27/18 17:58 INR 1.05 (0.83-1.16) 08/27/18 17:58 - Physical Exam Constitutional: no apparent distress Eyes: PERRL Ears, Nose, Mouth, Throat: moist mucous membranes Cardiovascular: regular rate and rhythym Respiratory: no respiratory distress, clear to auscultation Gastrointestinal: normoactive bowel sounds, other (soft, mod distention, nontender) Skin: warm Musculoskeletal: full muscle strength Neurologic: AAOx3 Psychiatric: interacting appropriately ICD10 Worksheet Patient Problems: Problems Problem Status Onset Dehydration Acute Failure to thrive in adult Acute
[2018-09-09] MEDS: Fluticasone/Vilanterol [Breo Ellipta 100-25 Mcg Inh] 1 PUFFS IH SCH (10:29)
[2018-09-09] MEDS: guaiFENesin 600 MG TAB.ER PO SCH ×2 (10:49→21:47)
[2018-09-09] MEDS: PANTOPRAZOLE SODIUM 40 MG TAB PO SCH (10:49)
[2018-09-09] MEDS: CALCIUM CARB W/VIT D 500 MG TAB PO SCH ×2 (10:49→21:47)
[2018-09-09] MEDS: ONDANSETRON 4 MG/2 ML VIAL IVP PRN (10:49)
[2018-09-09] MEDS: predniSONE 10 MG TAB PO SCH (10:50)
[2018-09-09] MEDS: LOSARTAN POTASSIUM 50 MG TAB PO SCH (10:50)
[2018-09-09] MEDS ORDERED: POTASSIUM CL 10 MEQ TAB PO ONE (12:38)
[2018-09-09] MEDS: ABIRATERONE 250 MG PO SCH ×2 (12:47→21:52)
[2018-09-09] MEDS: FIDAXOMICIN 200 MG TAB PO SCH ×2 (13:06→22:01)
[2018-09-09] MEDS: ENOXAPARIN 40 MG/0.4 ML SYR SC SCH (13:06)
[2018-09-09] MEDS: ATORVASTATIN CALCIUM 40 MG TAB PO SCH (13:06)
--- NOTE | 2018-09-09 15:27 | ASMTCMCOM ---
CM Note CM Note Notes: Chart reviewed. Patient continues to experience liquid stools. He will be monitored for the next 24 hours for improvement of his c-diff colitis symptoms. If no improvement may plan to transfer him to a facility that can do Fecal transplants to treat his c-diff. Nicole at [facility] aware of plan. CM to follow. Plan: TBD Date Signed: 09/09/2018 03:26 PM Electronically Signed By:Kristen Barrienots RN
[2018-09-09] MEDS: POTASSIUM Cl (KCl) 20 MEQ in 1/2 NS 1,000 ML IV SCH (18:05)
[2018-09-09] MEDS: FAMOTIDINE 20 MG TAB PO SCH (18:05)
[2018-09-09] MEDS: ZOLPIDEM TARTRATE 5 MG TAB PO SCH (21:47)
[2018-09-09] MEDS: ESCITALOPRAM OXALATE 10 MG TAB PO SCH (21:47)
[2018-09-10] MEDS: POTASSIUM Cl (KCl) 20 MEQ in 1/2 NS 1,000 ML IV SCH (07:38)
[2018-09-10] MEDS ORDERED: POTASSIUM CL 10 MEQ TAB PO ONE (07:59)
[2018-09-10] MEDS: ENOXAPARIN 40 MG/0.4 ML SYR SC SCH (08:24)
[2018-09-10] MEDS: guaiFENesin 600 MG TAB.ER PO SCH ×2 (08:25→20:57)
[2018-09-10] MEDS: LOSARTAN POTASSIUM 50 MG TAB PO SCH (08:26)
[2018-09-10] MEDS: CALCIUM CARB W/VIT D 500 MG TAB PO SCH ×2 (08:30→20:56)
[2018-09-10] MEDS: ATORVASTATIN CALCIUM 40 MG TAB PO SCH (08:30)
[2018-09-10] MEDS: Fluticasone/Vilanterol [Breo Ellipta 100-25 Mcg Inh] 1 PUFFS IH SCH ×2 (08:30→11:34)
[2018-09-10] MEDS: predniSONE 10 MG TAB PO SCH (08:31)
[2018-09-10] MEDS: ABIRATERONE 250 MG PO SCH ×2 (08:31→20:57)
[2018-09-10] MEDS: PANTOPRAZOLE SODIUM 40 MG TAB PO SCH (08:31)
[2018-09-10] MEDS: FIDAXOMICIN 200 MG TAB PO SCH ×2 (09:08→20:56)
--- NOTE | 2018-09-10 14:23 | HOSPPROG ---
Hospitalist Progress Note Assessment/Plan: 88 y/o male w hx of prostate ca, leukemia who presented w weakness. He was recently hospitalized for GNR bacteremia and treated w Zosyn. He was dc'd on cipro and Metronidazole for a total of 14 days of treatment. Now with ongoing C diff colitis. * c diff colitis - CT 09/05, nonspecific colitis of descending and rectosigmoid colon, no abscess/pneumoperitoneum. GI performed flex sig on 09/06 which showed pseudomembraneous colitis -cont dificid and iv flagyl (discussed possibly dc'ing the later with ID as may not be providing much benefit and could be contributing to decreased appetite) -rectal tube out, stool seems thicker and less output -may need fecal transplant if not improving with change to dificid in next day or so *weakness and dehydration - cont ivf with poor oral intake - dietary consult, recommending enteral nutrition - PT/OT *SPCM - nutrition is a concern, but he is now tolerating bone broth and ensure - discussed TPN vs enteral feeds via dobhoff, pt does not want tube feeds and is optimistic that he can take in more oral nutrition - continue to assess nutritional intake daily, may need TPN vs tube feeds tomorrow if not oral intake not improving *Superficial Thrombus, RUE U/S on 09/04 showed thrombus involving R cephalic vein extending from antecubital fossa to shoulder level - No indication for AC currently - Continue to monitor *fever - possibly 2/2 C diff, resolved - blood cultures NGTD *hypotension - cut his dose of Losartan in half (25 mg qd) and would continue this at or - he can f/u with his PCP *acute kidney injury - resolved *iron deficiency anemia, thrombocytopenia - no e/o bleeding. S/p EGD which showed erosive gastropathy - asa on hold - has had 3 days of IV iron - cont PPI - monitor *Rectal prolapse - resolved *hx of prostate ca & leukemia - likely not cause of the above, he has been recently seen and is stable *hypocalcemia - on calcium replacement - continue to monitor *concerns for gallbladder issues - ultrasound shows nothing acute - HIDA scan shows nothing acute w a good EF *Left leg edema that is chronic *CAD -asa & statin *DVT PPLX - lovenox, plts now ~100K, monitor *Dispo: cont inpt, likely dc to SNF for strengthening, ADD uncertain Subjective: Pt feels better today. No N/V. Tolerating broth and ensure. No fevers. Less stool output, rectal tube fell out this am, stool seems thicker. Objective: Vital Signs Temp Pulse Resp BP Pulse Ox 36.3 C 79 15 129/63 H 93 09/10/18 08:00 09/10/18 11:39 09/10/18 11:39 09/10/18 08:26 09/10/18 11:39 Laboratory Results 09/09/18 07:09 09/10/18 04:37 09/09/18 09/10/18 09/11/18 05:59 05:59 05:59 Intake Total 2308 1049 500 Output Total 900 600 30 Balance 1408 449 470 PT 13.9 SEC (12.0-15.0) 08/27/18 17:58 INR 1.05 (0.83-1.16) 08/27/18 17:58 - Physical Exam Constitutional: no apparent distress Eyes: PERRL Ears, Nose, Mouth, Throat: moist mucous membranes Cardiovascular: regular rate and rhythym Respiratory: no respiratory distress, clear to auscultation Gastrointestinal: other (soft, mod distention, nontender) Skin: warm Musculoskeletal: full muscle strength Neurologic: AAOx3 Psychiatric: interacting appropriately ICD10 Worksheet Patient Problems: Problems Problem Status Onset Dehydration Acute Failure to thrive in adult Acute
--- NOTE | 2018-09-10 15:36 | PCMIDPN ---
Assessment/Plan: Assessment/Plan: * Refractory C difficile colitis: Has completed 3 days of fidaxomicin. Only 1 episode of diarrhea present so far today. Unclear if this represents improvement as is too early to document trend. If frequency of diarrhea remains decreased think can continue therapy with fidaxomicin. If this is not established as true trend, think he will need fecal transplantation to achieve resolution of C difficile. Will discontinue IV metronidazole as unclear if this is providing any added benefit or if it is potentially contributing to some of his poor appetite. Will repeat KUB to ensure no evidence of colonic dilatation given persistent abdominal distension. Time spent, greater than 35 min, of which greater than half was spent in education/counseling/coordination of care related to refractory C difficile colitis, clinical findings today, plan to continue fidaxomicin and discontinue metronidazole as well as further evaluate with KUB. Daughter updated by phone while visiting with patient today. Care coordinated with Dr. Anderson and nursing staff. 09/10/18 15:33 09/10/18 15:37 09/10/18 15:38 Subjective: Rectal tube came out last night. Only 1 episode of diarrhea noted today. Complains of poor appetite and abdominal distension. Objective: Vital Signs Temp Pulse Resp BP Pulse Ox 36.3 C 79 15 129/63 H 93 09/10/18 08:00 09/10/18 11:39 09/10/18 11:39 09/10/18 08:26 09/10/18 11:39 Laboratory Results 09/09/18 07:09 09/10/18 04:37 09/09/18 09/10/18 09/11/18 05:59 05:59 05:59 Intake Total 2308 1049 500 Output Total 900 600 30 Balance 1408 449 470 Fidaxomicin # 4 Metronidazole #6 - Physical Exam General Appearance: alert, no apparent distress, non-toxic, other (Fatigued appearance) EENT: dry mucous membranes, No scleral icterus Abdomen: non-tender, distended ICD10 Worksheet Patient Problems: Problems Problem Status Onset Dehydration Acute Failure to thrive in adult Acute
--- NOTE | 2018-09-10 15:51 | ASMTCMCOM ---
CM Note CM Note Notes: Patient plan of care reviewed. Severe c-diff colitis, followed by ID. Likely to stay the course and follow incidents of liquid stools for now. Still may need fecal transplant and if required will need to transfer to another facility. If continues to improve then plan to [place] for rehab. Plan: As above. Date Signed: 09/10/2018 03:51 PM Electronically Signed By:Kristen Barrientos RN
[2018-09-10] MEDS: FAMOTIDINE 20 MG TAB PO SCH (17:31)
[2018-09-10] MEDS: ESCITALOPRAM OXALATE 10 MG TAB PO SCH (20:57)
[2018-09-10] MEDS: ZOLPIDEM TARTRATE 5 MG TAB PO SCH (20:57)
[2018-09-11] MEDS ORDERED: PROTOCOL CALCIUM 1 DOSE IV PRN (06:30)
[2018-09-11] MEDS: ABIRATERONE 250 MG PO SCH ×2 (09:46→23:00)
[2018-09-11] MEDS: LOSARTAN POTASSIUM 50 MG TAB PO SCH (09:49)
[2018-09-11] MEDS: ATORVASTATIN CALCIUM 40 MG TAB PO SCH (09:49)
[2018-09-11] MEDS: CALCIUM CARB W/VIT D 500 MG TAB PO SCH ×2 (09:49→22:59)
[2018-09-11] MEDS: predniSONE 10 MG TAB PO SCH (09:49)
[2018-09-11] MEDS: PANTOPRAZOLE SODIUM 40 MG TAB PO SCH (09:52)
[2018-09-11] MEDS: guaiFENesin 600 MG TAB.ER PO SCH ×2 (09:52→22:59)
[2018-09-11] MEDS: FIDAXOMICIN 200 MG TAB PO SCH ×2 (09:56→23:00)
[2018-09-11] MEDS ORDERED: CALCIUM GLUCONATE 50 ML IV ONE (09:57)
[2018-09-11] MEDS: Fluticasone/Vilanterol [Breo Ellipta 100-25 Mcg Inh] 1 PUFFS IH SCH (10:33)
[2018-09-11] MEDS: ENOXAPARIN 40 MG/0.4 ML SYR SC SCH (10:45)
[2018-09-11] MEDS: POTASSIUM Cl (KCl) 20 MEQ in 1/2 NS 1,000 ML IV SCH (11:34)
[2018-09-11] MEDS ORDERED: IMMUNE GLOBULIN 20 GM/200 ML VIAL IV SCH (12:30)
--- NOTE | 2018-09-11 13:54 | PCMIDPN ---
Assessment/Plan: # Severe C diff colitis with pseudomembranes seen on Flex sig and path showing pseudomembranous colitis, still with frequent BM. No abdominal pain. Low appetite. Feels minimal improvement. KUB 09/10/2018 personally reviewed by me which showed diffuse dilation of the colon and thumb printing of the sigmoid. --fecal transplant cannot occur until Friday therefore patient will remain in house until Friday --continue fidaxomicin --consider repeat KUB tomorrow and if still significant colonic dilatation, consider rectal vancomycin --encouraged ambulation for ileus induced by severe C diff colitis --poor p.o. Intake entire course of illness, will try to start tube feeds today --expectation is to have less diarrhea, no formed stool # Mantle cell lymphoma: IgG quite low at 265. Could be contributing factor to lack of resolution of Cdiff colitis. Education of family and patient that no "guarantee" that this will help his symptoms and use in this case is based of clinical judgement and experience, not clinical trial --Plan to give IgG around 400mg/kg = 40gm x 1 Meds, Cdiff Rx #13 Vancomycin 125 mg p.o. Four times daily 08/29/2018 then 250 mg p.o. Four times daily 09/01/2018, metronidazole IV was added 09/05-09/10; vancomycin changed to fidaxomicin 200mg PO BID on 09/07/18 - current Subjective: Still with abdominal distention, large volume liquid stool with incontinence; no abdominal pain, early satiety and low appetite Objective: Vital Signs Temp Pulse Resp BP Pulse Ox 36.4 C 77 16 155/83 H 96 09/11/18 08:10 09/11/18 08:10 09/11/18 08:10 09/11/18 09:49 09/11/18 08:10 Laboratory Results 09/11/18 04:32 09/11/18 04:32 09/10/18 09/11/18 09/12/18 05:59 05:59 05:59 Intake Total 1049 1800 Output Total 600 580 Balance 449 1220 - Physical Exam General Appearance: alert, no apparent distress, obese, non-toxic EENT: pale conjunctiva, dry mucous membranes, No thrush Respiratory: lungs clear, accessory muscle use Neck: supple Cardiac/Chest: regular rate, rhythm Abdomen: soft, distended, other (Decreased bowel sounds), No guarding, No peritoneal signs Skin: pallor, No rash Neuro/Psych: alert, normal mood/affect, oriented x 3 - Line/s PIV Lines: other (Left hand C/D/I), No drainage, No erythema - Time Spent With Patient Time Spent with Patient: greater than 35 minutes Time Spent with Patient: Greater than 35 minutes spent on this patients care, greater than 50% of time spent counseling, educating, and coordinating care regarding the above mentioned plan. ICD10 Worksheet Patient Problems: Problems Problem Status Onset Dehydration Acute Failure to thrive in adult Acute
[2018-09-11] MEDS: ACETAMINOPHEN 325 MG TAB PO PRN (14:22)
--- NOTE | 2018-09-11 14:28 | HOSPPROG ---
Hospitalist Progress Note Assessment/Plan: 88 y/o male w hx of prostate ca, leukemia who presented w weakness. He was recently hospitalized for GNR bacteremia and treated w Zosyn. He was dc'd on cipro and Metronidazole for a total of 14 days of treatment. Now with ongoing C diff colitis. * c diff colitis - CT 09/05, nonspecific colitis of descending and rectosigmoid colon, no abscess/pneumoperitoneum. GI performed flex sig on 09/06 which showed pseudomembraneous colitis. Rpt abd film yest pers reviewed/interp, still with significant colon distention. Today, increased loose stools. -at this point, he needs to [facility]. Discussed with Dr. 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 Downey. ID checked IgG levels, which are low -per ID, will give immunoglobulin today, might help him clear c diff infection better, though time will tell *weakness and dehydration - cont ivf with poor oral intake, wean as his tube feeds are up-titrated - starting tube feeds as below - PT/OT *SPCM - very little oral intake since admission - small bowel feeding tube to be placed by radiology - start tube feeds per dietary (low dairy formula if available) *Superficial Thrombus, RUE U/S on 09/04 showed thrombus involving R cephalic v - No indication for AC currently - Continue to monitor *fever - possibly 2/2 C diff, resolved - blood cultures NGTD *hypertension with some hypotension 08/29 - resolved with IVF's, bp's a bit elevated now - resume home dose of losartan *acute kidney injury - resolved *iron deficiency anemia, thrombocytopenia - no e/o bleeding. S/p EGD which showed erosive gastropathy - asa on hold - s/p 3 days of IV iron - cont PPI *Rectal prolapse - resolved *hypocalcemia - on calcium replacement *concerns for gallbladder issues - ultrasound shows nothing acute - HIDA scan shows nothing acute w a good EF *Left leg edema that is chronic *CAD -asa & statin *DVT PPLX - lovenox, held today for plts <100 *Dispo: cont inpt, transfer to [facility] Friday for fecal transplant Friday if still symptomatic from C diff Subjective: Pt having more loose stools this am. No significant abdominal pain. No N/V. No fevers. Still very little oral intake, takes some sips of broth and ensure. Objective: Vital Signs Temp Pulse Resp BP Pulse Ox 36.4 C 77 16 155/83 H 96 09/11/18 08:10 09/11/18 08:10 09/11/18 08:10 09/11/18 09:49 09/11/18 08:10 Laboratory Results 09/11/18 04:32 09/11/18 04:32 09/10/18 09/11/18 09/12/18 05:59 05:59 05:59 Intake Total 1049 1800 Output Total 600 580 Balance 449 1220 PT 13.9 SEC (12.0-15.0) 08/27/18 17:58 INR 1.05 (0.83-1.16) 08/27/18 17:58 - Physical Exam Constitutional: no apparent distress Eyes: PERRL Ears, Nose, Mouth, Throat: moist mucous membranes Cardiovascular: regular rate and rhythym Respiratory: no respiratory distress, clear to auscultation Gastrointestinal: normoactive bowel sounds, other (soft, moderate distention, nontender) Skin: warm Musculoskeletal: full muscle strength, other (1+ b/l LE edema) Neurologic: AAOx3 Psychiatric: interacting appropriately ICD10 Worksheet Patient Problems: Problems Problem Status Onset Dehydration Acute Failure to thrive in adult Acute
--- NOTE | 2018-09-11 14:38 | ASMTCMCOM ---
CM Note CM Note Notes: Patient will remain in-house until Friday when he will transfer to [facility] for a fecal transplant. I notified Nelida at [facility] of this plan. Case Management will follow. Date Signed: 09/11/2018 02:37 PM Electronically Signed By:Kera Mayes RN
[2018-09-11] MEDS: FAMOTIDINE 20 MG TAB PO SCH (18:00)
[2018-09-11] MEDS: ONDANSETRON DISINTEGRATING 4 MG TAB PO PRN (22:44)
[2018-09-11] MEDS: ESCITALOPRAM OXALATE 10 MG TAB PO SCH (22:59)
[2018-09-11] MEDS: ZOLPIDEM TARTRATE 5 MG TAB PO SCH (22:59)
[2018-09-12] MEDS: Fluticasone/Vilanterol [Breo Ellipta 100-25 Mcg Inh] 1 PUFFS IH SCH (08:22)
--- NOTE | 2018-09-12 08:41 | HOSPPROG ---
Hospitalist Progress Note Assessment/Plan: 88 y/o male w hx of prostate ca, leukemia who presented w weakness. He was recently hospitalized for GNR bacteremia and treated w Zosyn. He was dc'd on cipro and Metronidazole for a total of 14 days of treatment. Now with ongoing C diff colitis. * c diff colitis - CT 09/05, nonspecific colitis of descending and rectosigmoid colon, no abscess/pneumoperitoneum. GI performed flex sig on 09/06 which showed pseudomembraneous colitis. -plan is to transfer [place] [facility]. Discussed with Dr. 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 Downey. ID checked IgG levels, which are low -per ID, immunoglobulin given yesterday -discussed with Dr Stock, no other specific recommendations from oncology at this time *weakness and dehydration, improved -will hold on IVF as taking liquids/stayng hydrated now -unclear if will be able to place [place] here today or prior to transfer, RN working with [facility] re logistics -TF are ordered already -PT/OT *SPCM - small bowel feeding tube to be placed by [facility] or [facility] - start tube feeds per dietary (low dairy formula if available) *Superficial Thrombus, RUE U/S on 09/04 showed thrombus involving R cephalic vein - No indication for AC currently *fever - possibly 2/2 C diff, resolved - blood cultures NGTD *hypertension with some hypotension 08/29 - resolved with IVF's, bp's a bit elevated now - resume home dose of losartan *acute kidney injury - resolved *iron deficiency anemia, thrombocytopenia (stable) - EGD which showed erosive gastropathy - asa and lovenox on hold - s/p 3 days of IV iron - cont PPI *Rectal prolapse - resolved *hypocalcemia, ionized levels OK -will stop protocol *concerns for gallbladder issues - ultrasound shows nothing acute - HIDA scan shows nothing acute w a good EF *Left leg edema that is chronic *CAD -asa & statin (holding ASA bc of thrombocytopenia) PCP- Dr Erica Mckeon FULL CODE DVT prophy- held bc of thrombocytopenia DISPO: cont inpt, transfer to [facility] Friday for fecal transplant Friday Subjective: in room. Concerned as no feeding tube placed yet and how that will work with stool transplant (done via upper GI tract at [facility] per Dr Hansen). No n/v, feels less distended. Still with >3 stools in last 24 hours. Objective: Vital Signs Temp Pulse Resp BP Pulse Ox 98.0 F 80 16 149/66 H 91 L 09/12/18 08:08 09/12/18 08:29 09/12/18 08:29 09/12/18 08:08 09/12/18 08:29 Laboratory Results 09/12/18 04:52 09/12/18 04:52 09/10/18 09/11/18 09/12/18 11:59 11:59 11:59 Intake Total 1549 1300 1870 Output Total 630 550 825 Balance 301 866 8827 PT 13.9 SEC (12.0-15.0) 08/27/18 17:58 INR 1.05 (0.83-1.16) 08/27/18 17:58 - Time Spent With Patient Time Spent with Patient: greater than 35 minutes (new pt to me, conferred with ID and oncology specialists re care) Time Spent with Patient: Greater than 35 minutes spent on this patients care, greater than 50% of time spent counseling, educating, and coordinating care regarding the above mentioned plan. - Physical Exam Constitutional: no apparent distress, appears nourished, not in pain Eyes: anicteric sclera Ears, Nose, Mouth, Throat: moist mucous membranes, hearing normal Cardiovascular: regular rate and rhythym, no murmur, rub, or gallop, No JVD Respiratory: no respiratory distress, no rales or rhonchi, clear to auscultation Gastrointestinal: tenderness (minimally in B lower quadrants), No ascites, No hepatosplenomegally, No guarding, No rebound, No distension Skin: warm, normal color Psychiatric: interacting appropriately, not anxious, not encephalopathic, thought process linear ICD10 Worksheet Patient Problems: Problems Problem Status Onset C. difficile colitis Acute Dehydration Acute Failure to thrive in adult Acute
[2018-09-12] MEDS: POTASSIUM Cl (KCl) 20 MEQ in 1/2 NS 1,000 ML IV SCH (09:42)
[2018-09-12] MEDS: FIDAXOMICIN 200 MG TAB PO SCH ×2 (09:42→23:05)
[2018-09-12] MEDS: predniSONE 10 MG TAB PO SCH (09:43)
[2018-09-12] MEDS: CALCIUM CARB W/VIT D 500 MG TAB PO SCH ×2 (09:43→23:05)
[2018-09-12] MEDS: LOSARTAN POTASSIUM 50 MG TAB PO SCH (09:43)
[2018-09-12] MEDS: ATORVASTATIN CALCIUM 40 MG TAB PO SCH (09:43)
[2018-09-12] MEDS: guaiFENesin 600 MG TAB.ER PO SCH ×2 (09:45→23:05)
[2018-09-12] MEDS: CYANO/VITAMIN B12 1000 MCG TAB PO SCH (09:45)
[2018-09-12] MEDS: PANTOPRAZOLE SODIUM 40 MG TAB PO SCH (09:45)
[2018-09-12] MEDS: ENOXAPARIN 40 MG/0.4 ML SYR SC SCH (10:51)
[2018-09-12 10:57] LABS: PLATELET COUNT 90 10^3/uL (150-400)
--- NOTE | 2018-09-12 11:00 | ASMTCMCOM ---
CM Note CM Note Notes: Patient continues to have poor response to current therapy. Nutrition depleted. To have dobhoff placed for feedings. Plan to transfer to [facility] tomorrow where treatment with fecal transplantation can be obtained. CM available. Plan: As above. Date Signed: 09/12/2018 11:00 AM Electronically Signed By:Kristen Barrientos RN
[2018-09-12] MEDS: ABIRATERONE 250 MG PO SCH ×2 (11:03→23:24)
--- NOTE | 2018-09-12 14:33 | PCMIDPN ---
Assessment/Plan: # Severe C diff colitis with pseudomembranes seen on Flex sig and path showing pseudomembranous colitis, still with fairly frequent BM. No abdominal pain (But never did). Less abdominal distension and slight improvement in appetite today. KUB today shows improvement in bowel gas pattern. Lack of leukocytosis may more of a sign of poor immunologic response than a good sign. --fecal transplant cannot occur until Friday therefore patient will remain in house until Friday. Warned patient and family that transfers are sometimes delayed when [facility] full --continue fidaxomicin --with improved bowel function/KUB, would not add rectal vancomycin at this point --hold off on dopoff bc may need NGT for fecal transplant # Mantle cell lymphoma: IgG quite low at 265. s/p immunoglobulin dosed around 400mg/kg = 40gm x 1 Meds, Cdiff Rx #14 Vancomycin 125 mg p.o. Four times daily 08/29/2018 then 250 mg p.o. Four times daily 09/01/2018, metronidazole IV was added 09/05-09/10; vancomycin changed to fidaxomicin 200mg PO BID on 09/07/18 - current Subjective: patient feels less abdominal distension still with frequent BM NGT not able to be placed yesterday due to staffing Objective: Vital Signs Temp Pulse Resp BP Pulse Ox 36.7 C 80 16 157/82 H 91 L 09/12/18 08:08 09/12/18 08:29 09/12/18 08:29 09/12/18 09:43 09/12/18 08:29 Laboratory Results 09/12/18 09:58 09/12/18 04:52 09/11/18 09/12/18 09/13/18 05:59 05:59 05:59 Intake Total 1800 1870 Output Total 580 825 201 Balance 1220 1045 -201 AF Physical Exam General Appearance: alert, no apparent distress, obese, non-toxic, cheerful EENT: pale conjunctiva, dry mucous membranes, No thrush Respiratory: lungs clear, accessory muscle use Neck: supple Cardiac/Chest: regular rate, rhythm Abdomen: soft, still fairly distended, possible small improveent, Decreased bowel sounds, No guarding, No peritoneal signs Skin: pallor, No rash Neuro/Psych: alert, normal mood/affect, oriented x 3 Time Spent with Patient: Greater than 35 minutes spent on this patients care, greater than 50% of time spent counseling, educating, and coordinating care regarding the above mentioned plan. ICD10 Worksheet Patient Problems: Problems Problem Status Onset C. difficile colitis Acute Dehydration Acute Failure to thrive in adult Acute
[2018-09-12] MEDS: FAMOTIDINE 20 MG TAB PO SCH (18:42)
[2018-09-12] MEDS: ESCITALOPRAM OXALATE 10 MG TAB PO SCH (23:05)
[2018-09-12] MEDS: ZOLPIDEM TARTRATE 5 MG TAB PO SCH (23:05)
[2018-09-13 08:24] VITALS: BP 162/81
[2018-09-13] MEDS: FIDAXOMICIN 200 MG TAB PO SCH (09:27)
[2018-09-13] MEDS: predniSONE 10 MG TAB PO SCH (09:28)
[2018-09-13] MEDS: PANTOPRAZOLE SODIUM 40 MG TAB PO SCH (09:28)
[2018-09-13] MEDS: ATORVASTATIN CALCIUM 40 MG TAB PO SCH (09:28)
[2018-09-13] MEDS: LOSARTAN POTASSIUM 50 MG TAB PO SCH (09:28)
[2018-09-13] MEDS: CALCIUM CARB W/VIT D 500 MG TAB PO SCH (09:28)
[2018-09-13] MEDS: guaiFENesin 600 MG TAB.ER PO SCH (09:28)
[2018-09-13] MEDS: CYANO/VITAMIN B12 1000 MCG TAB PO SCH (09:28)
[2018-09-13] MEDS: ABIRATERONE 250 MG PO SCH (09:30)
[2018-09-13] MEDS: Fluticasone/Vilanterol [Breo Ellipta 100-25 Mcg Inh] 1 PUFFS IH SCH (09:33)
--- NOTE | 2018-09-13 09:52 | PCMIDPN ---
Assessment/Plan: Assessment/Plan: * Refractory C difficile colitis: Overall improved with 2 loose stools today. KUB yesterday shows significant improvement with decreased dilatation of colon. Think he still will benefit from fecal transplant given refractory nature of his C difficile colitis. Unclear if some of his improvement may be related to receipt of IVIG based on low IgG level. Continue fidaxomicin pending fecal transplantation. Patient will be transferred to the [place] later today for assessment of potential fecal transplantation for refractory C difficile colitis. 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 Discussed with patient will require repeat Ig levels in approximately 3-4 weeks. May be related to underlying marginal zone lymphoma. Clinical findings and plan reviewed with patient, , and Dr. Bermudez. 09/13/18 09:49 09/13/18 09:54 Subjective: Patient states "I feel good". 2 loose stools today. Feels like abdominal distension is decreased. Objective: Vital Signs Temp Pulse Resp BP Pulse Ox 36.6 C 73 16 162/81 H 92 09/13/18 08:00 09/13/18 08:00 09/13/18 08:00 09/13/18 08:00 09/13/18 08:00 Laboratory Results 09/13/18 03:52 09/13/18 03:52 09/12/18 09/13/18 09/14/18 05:59 05:59 05:59 Intake Total 1870 1410 Output Total 825 701 400 Balance 1045 709 -400 Fidaxomicin # 7 C difficile therapy # 14 - Physical Exam General Appearance: alert, no apparent distress EENT: No scleral icterus, No thrush Extremities: inflammation (Right upper extremity phlebitis continues to resolve) Abdomen: non-tender, distended (Less distended versus prior exam) - Time Spent With Patient Time Spent with Patient: greater than 25 minutes Time Spent with Patient: Greater than 25 minutes spent on this patients care, greater than 50% of time spent counseling, educating, and coordinating care regarding the above mentioned plan. ICD10 Worksheet Patient Problems: Problems Problem Status Onset C. difficile colitis Acute Dehydration Acute Failure to thrive in adult Acute
--- NOTE | 2018-09-13 10:01 | ASMTDCNOTE ---
Case Management Discharge Discharge Order Complete? Answers: Yes Transportation Arranged Answers: Other Notes: [facility] will Pick (Date 09/13/2018 12:00 AM & Time) EMTALA Complete Answers: Yes Agency/Facility Transfer Answers: Yes Report Printed & Faxed to Receiving Agency Family Notified Answers: Yes Discharge Comments Notes: Images on CD, reports printed. [place] set up by [facility]. Patient to go to room number 916. RN has number to call report. at bedside. Date Signed: 09/13/2018 10:01 AM Electronically Signed By:Kristen Barrientos RN
--- NOTE | 2018-09-13 10:02 | ASMTLACE ---
LACE Length of stay for Answers: 14 days or more current admission Acuity / Level of Answers: Yes Care: Did the patient have an inpatient admission? Comorbidities - select Answers: Any tumor (including all that apply lymphoma or leukemia) Coronary Artery Disease Other Notes: Prostate ca # of Emergency department Answers: 1-2 visits in the last 6 months Score: 16 Date Signed: 09/13/2018 10:01 AM Electronically Signed By:Kristen Barrientos RN
--- NOTE | 2018-09-13 11:24 | GDS ---
SERVICE: [facility] hospitalist CONSULTS: Gastroenterology, Infectious Disease. PROCEDURES: 1. Chest x-ray at admission, which showed patchy subsegmental atelectasis. No acute findings. 2. HIDA scan, which showed normal hepatobiliary scan with an EF of 39%. 3. Upper GI endoscopy on 08/29/2018 (Dr. Real), which showed plaques in the esophagus, non-bleeding erosive gastropathy. Pathology returned with chronic inflammation. No H pylori. Squamous mucosa with minimal/mild acute inflammation. 4. Multiple abdominal x-rays. 5. CT abdomen/pelvis 09/05/2018, showing nonspecific colitis descending rectosigmoid colon, as well as cecum. No abscesses. Small bilateral pleural effusions. Splenomegaly. 6. Upper extremity Doppler showing right cephalic vein thrombus from antecubital fossa to shoulder. No DVT. 7. Flexible sigmoidoscopy 09/06/2018 (Dr. Garcia), showing pseudomembranous enterocolitis. Pathology returned with pseudomembranous colitis/C difficile colitis. HISTORY OF PRESENT ILLNESS: H and P, please see previously dictated note by Dr. Torres. ADMISSION DIAGNOSES: 1. Weakness, dehydration. 2. Acute kidney injury, likely prerenal. 3. Concern for gallbladder pathology. 4. Left leg edema, chronic. 5. Coronary artery disease. 6. Prostate Cancer DISCHARGE DIAGNOSES: 1. Clostridium difficile colitis. 2. Weakness, dehydration, resolved. 3. Severe protein calorie malnutrition. 4. Superficial thrombus, right upper extremity. 5. Hypertension. 6. Acute kidney injury, resolved. 7. Iron deficiency anemia. 8. Thrombocytopenia, stable. 9. Rectal prolapse, resolved. 10. Hypocalcemia, improved. 11. Concerns for gallbladder issues, resolved. 12. Left leg edema, chronic. 13. Coronary artery disease, stable. 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 15. Prostate cancer, stable. HOSPITAL COURSE: The patient came to the emergency department because of weakness with some nausea and vomiting. Evaluation in the emergency department revealed normal lactate, elevated white blood cell count, anemia, thrombocytopenia, and acute kidney injury with a creatinine of 1.6. He was admitted for IV fluids and further evaluation. He began to have frequent stools on August 29. Stool samples were sent for C difficile (because of his recent admission to [facility] for GI issues) and also for Hemoccult. He was found to be Hemoccult positive and C difficile positive. At that time, contagious precautions were instituted. Gastroenterology was initially consulted because of iron deficiency anemia and performed an upper endoscopy with findings as above. He was treated with IV iron x3 and did not require any blood transfusions. His hemoglobin remained stable throughout his stay and subsequent hemoccults were negative. Gastroenterology recommended ongoing H2 and proton pump inhibitor therapy which was continued during his stay but stopped at time of transfer. After C difficile was positive, he was started on oral vancomycin. After several days, his diarrhea frequency was not improving and Infectious Disease was asked to consult on his care. Of note, his temperature remained essentially afebrile throughout his stay with only a 1 time T-max of 100.9 early in his hospitalization. Initially, no change to his antibiotics was recommended. However, after several more days when his symptoms were not improving, a CT scan was done showing nonspecific colitis as described above. Gastroenterology performed a flexible sigmoidoscopy as described above, and IV Flagyl was added on 09/05. Symptoms continued and Infectious Disease recommended stopping oral vancomycin on 09/07, and changing to oral fidaxomicin in consultation with Gastroenterology. Slowly symptoms of weakness improved, but he was noted to have very poor oral intake with severe protein calorie malnutrition identified by weight loss. He had ongoing moderate colonic distention on KUBs . Nutrition recommended enteral feeds to supplement oral feeds. However, [place] tube was unable to be placed at our facility because of staffing issues. Decision was made to not use TPN as it was becoming clear that he was going to transfer to [facility] for consideration of a fecal transplant. 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 On the day of discharge he was feeling much improved, but is continuing to still have at least 2 to 3 loose bowel movements a day. After a discussion with Dr. Hansen and Dr. Ramos of Infectious Disease, along with the patient and his , it was agreed that he will transfer to [facility] for consideration of fecal transplant. All records and imaging will be sent to [facility]. I did a physician transfer care summary with Dr. Clif Benavidez, accepting hospitalist, who will then consult Gastroenterology for ongoing care of the patient. Of note, he had a thrombus in his right peripheral IV site, see ultrasound above. He had been on Lovenox and baby aspirin, but these were held because of ongoing thrombocytopenia, which remained stable. He was not having any pain or signs of infection at this upper extremity superficial thrombus. He is on chronic steroid of prednisone 10 mg daily, which the patient says is because of his prostate cancer that is currently being treated with Zytiga. DISCHARGE MEDICATIONS: Please see full listing in the discharge plan. Copy requested to: [facility] Dr Sepideh Mckeon [facility] /[id number]/MODL MTDD
== END 2018-09-13 11:34 | disposition short-term general hospital (02) | DRG 371 ==
LOC: F3N 21:57 → OBSVTOIN 08-28 15:26 → F1N 09-01 15:34
PROVIDERS: ADMIT Student in an Organized Health Care Education/Training Program; ATTEND Student in an Organized Health Care Education/Training Program
DX: A04.72 Enterocolitis due to Clostridium difficile, not specified as recurrent (principal); T36.8X5A Adverse effect of other systemic antibiotics, initial encounter; E43 Unspecified severe protein-calorie malnutrition; I82.611 Acute embolism and thrombosis of superficial veins of right upper extremity; L89.152 Pressure ulcer of sacral region, stage 2; E86.0 Dehydration; N17.9 Acute kidney failure, unspecified; K62.3 Rectal prolapse; D50.0 Iron deficiency anemia secondary to blood loss (chronic); E83.51 Hypocalcemia; C83.10 Mantle cell lymphoma, unspecified site; I25.10 Atherosclerotic heart disease of native coronary artery without angina pectoris; E78.5 Hyperlipidemia, unspecified; I10 Essential (primary) hypertension; R60.0 Localized edema; Z85.46 Personal history of malignant neoplasm of prostate; Z95.5 Presence of coronary angioplasty implant and graft; Z87.891 Personal history of nicotine dependence
CPT/HCPCS: 82784-90; 96374; 97110-GO; 97110-GP; 97116-GP; 97161-GP; 97165-GO; 97530-GO; 97530-GP; 97535-GO; A9537; G0378; G8978-GP-CJ; G8978-GP-CK; G8979-GP-CI; G8979-GP-CJ; G8987-GO-CJ; G8988-GO-CI; J0610; J1459; J1650; J2370; J2405; J2704; J2805; J2916; J3480; J7512; Q9967

== ENCOUNTER 2018-10-08 10:23 | Emergency (ER) | payer OTHER, MEDICARE ==
[2018-10-08] MEDS ORDERED: NS 1,000 ML IV ONE (11:03)
[2018-10-08] MEDS ORDERED: ONDANSETRON 4 MG/2 ML VIAL IVP ONE (11:13)
[2018-10-08] MEDS ORDERED: ONDANSETRON 4 MG/2 ML VIAL ONE (11:14)
--- NOTE | 2018-10-08 11:18 | EDPHY ---
H & P Stated Complaint: Vomiting/Dysphagia Time Seen by Provider: 10/08/18 10:41 HPI/ROS: CHIEF COMPLAINT: Vomiting HISTORY OF PRESENT ILLNESS: 88-year-old male presents with vomiting. At 0830 this morning, he was eating eggs and had an unusual sensation after swallowing the eggs, but didn't feel that the eggs became stuck in his esophagus. Onset of vomiting, associated with nausea, after eating this morning. No abdominal pain , fever or diarrhea. Recently admitted for C difficile colitis. Extensive GI evaluation during that admission, including endoscopy which revealed erosive gastropathy and plaques in the esophagus; no esophageal stricture. REVIEW OF SYSTEMS: complete 10 point ROS reviewed and is negative except for the noted elements in the HPI - Personal History Current Tetanus/Diphtheria Vaccine: Yes - Medical/Surgical History Hx Asthma: No Hx Chronic Respiratory Disease: No Hx Diabetes: No Hx Cardiac Disease: Yes Hx Renal Disease: No Hx Cirrhosis: No Hx Alcoholism: No Hx HIV/AIDS: No Hx Splenectomy or Spleen Trauma: No Other PMH: stent x2, hyperlipidemia, anemia, gerd, h-pylori, htn, macular degenration, prostate CA - Social History Smoking Status: Former smoker Alcohol Use: Sober Additional Social History: - Physical Exam Exam: General Appearance: Alert, pleasant, nontoxic-appearing Eyes: Pupils equal and round, no conjunctival pallor ENT, Mouth: Mucous membranes moist Neck: Normal inspection Respiratory: Lungs are clear to auscultation Cardiovascular: Regular rate and rhythm Gastrointestinal: Abdomen is soft and nontender Neurological: A&O, nonfocal, normal gait Skin: Warm and dry, no rash Extremities: Normal inspection Psychiatric: Mood and affect normal Constitutional: Initial Vital Signs Temperature (C) 36.3 C 10/08/18 10:35 Heart Rate 78 10/08/18 10:35 Respiratory Rate 16 10/08/18 10:35 Blood Pressure 116/67 10/08/18 10:35 O2 Sat (%) 98 10/08/18 10:35 O2 Delivery Mode Room Air O2 (L/minute) 2 Allergies/Adverse Reactions: No Known Allergies Allergy (Verified 10/08/18 10:38) Home Medications: Medication Instructions Recorded Abiraterone Acetate [Zytiga] 500 mg PO BID 08/27/18 Albuterol [Proventil Inhaler HFA 2 puffs IH Q4 PRN 08/27/18 (*)] Atorvastatin Calcium [Lipitor 40 40 mg PO DAILY 08/27/18 mg (*)] Cyanocobalamin [Vitamin B12 (*)] 1,000 mcg PO DAILY 08/27/18 Escitalopram Oxalate [Lexapro 10 10 mg PO HS 08/27/18 MG] Eszopiclone 3 mg PO HS PRN 08/27/18 Gabapentin [Neurontin 100 MG (*)] 100 mg PO TID 08/27/18 Losartan Potassium [Cozaar 50 mg 50 mg PO DAILY 08/27/18 (*)] Zolpidem Tartrate [Ambien 5MG (*)] 10 mg PO HS PRN 08/27/18 guaiFENesin [Mucinex 600 MG (*)] 1,200 mg PO BID 08/27/18 predniSONE 10 mg PO DAILY 08/27/18 Fluticasone/Vilanterol [Breo 1 puffs IH DAILY 08/28/18 Ellipta 100-25 Mcg INH] Fidaxomicin [Dificid 200 MG (*)] 200 mg PO BID tab 09/13/18 PE/Shark Liver/Gly/Pet,Wh 1 hua [place] QID PRN crtube 09/13/18 [Preparation H Cream (*)] Ondansetron Odt [Zofran Odt 4 mg 4 mg PO Q4 PRN #6 tab 10/08/18 (*)] Medical Decision Making ED Course/Re-evaluation: Patient presents with a 2 hr history of vomiting. Abdominal exam is benign and I do not suspect small bowel obstruction or other worrisome etiology. In addition, there is no evidence of esophageal food impaction. IV normal saline 1 L and Zofran 4 mg IV given. Feels better after IV fluids and Zofran. Able to tolerate oral fluids well, without nausea. Abdominal exam remained soft and nontender. Warning signs discussed. Prescription for Zofran written. Differential Diagnosis: Differential diagnosis includes though it is not limited to appendicitis, cholecystitis, diverticulitis, pyelonephritis, bowel perforation, small bowel obstruction. - Data Points Laboratory Results: Laboratory Results 10/08/18 10:51 10/08/18 10:51 Medications Given: Discontinued Medications Sodium Chloride (Ns) 1,000 mls @ 0 mls/hr IV EDNOW ONE; Wide Open PRN Reason: Protocol Stop: 10/08/18 11:04 Last Admin: 10/08/18 11:19 Dose: 1,000 mls Ondansetron HCl (Zofran) 4 mg IVP EDNOW ONE Stop: 10/08/18 11:14 Last Admin: 10/08/18 11:20 Dose: 4 mg Departure - Departure Disposition: Home, Routine, Self-Care Clinical Impression: Vomiting Qualifiers: Vomiting type: unspecified Vomiting Intractability: non-intractable Nausea presence: with nausea Qualified Code(s): R11.2 - Nausea with vomiting, unspecified Condition: Good Instructions: Acute Nausea and Vomiting (ED) Additional Instructions: 1. Clear liquids for 24 hours. 2. Advance diet as tolerated. I suggest the BRAT diet to start: bananas, rice, applesauce and toast. 3. Return for worsening symptoms, persistent vomiting, abdominal pain, any concerns. Referrals: Sepideh Mckeon MD [Primary Care Provider] - As per Instructions Prescriptions: Ondansetron Odt [Zofran Odt 4 mg (*)] 4 mg PO Q4 PRN #6 tab PRN Reason: Nausea
[2018-10-08 11:51] LABS: PLATELET COUNT 89 10^3/uL (150-400)
[2018-10-08 13:21] VITALS: BP 121/74
== END 2018-10-08 13:22 | disposition home or self-care (01) ==
DX: R11.2 Nausea with vomiting, unspecified (principal); E86.9 Volume depletion, unspecified; I10 Essential (primary) hypertension; E78.5 Hyperlipidemia, unspecified; K21.9 Gastro-esophageal reflux disease without esophagitis; Z87.891 Personal history of nicotine dependence
CPT/HCPCS: 96361; 96374; 99284; J2405

== ENCOUNTER → 2018-12-11 | Outpatient (CLI) | payer OTHER, MEDICARE | LOC: FIMAGING 14:06 | PROVIDERS: ATTEND Family Medicine | DX: E04.2 Nontoxic multinodular goiter (principal) ==

== ENCOUNTER → 2018-12-18 | Outpatient (CLI) | payer OTHER, MEDICARE | LOC: BMCIMAGING 13:10 | PROVIDERS: ATTEND Family Medicine | DX: J98.4 Other disorders of lung (principal) ==

== ENCOUNTER 2019-01-23 10:31 | Emergency (ER) | payer OTHER, MEDICARE ==
[2019-01-23 10:38] VITALS: BP 142/84
--- NOTE | 2019-01-23 11:08 | EDPHY ---
H & P Stated Complaint: pneumonia Time Seen by Provider: 01/23/19 10:42 HPI/ROS: CHIEF COMPLAINT: Fatigue HISTORY OF PRESENT ILLNESS: 88-year-old male with lymphoma and prostate cancer presents with fatigue. He saw his oncologist, Dr. Downey 2 days ago because of fatigue. A CT scan of the chest was obtained. The patient received a phone call [address] Downey is nurse, who told him that he had pneumonia and to follow-up on Friday. The patient and his became very concerned that he needs antibiotics if he has pneumonia and this prompted his visit today. The patient denies cough, fever or respiratory symptoms. REVIEW OF SYSTEMS: complete 10 point ROS reviewed and is negative except for the noted elements in the HPI - Personal History Current Tetanus/Diphtheria Vaccine: Yes Current Tetanus Diphtheria and Acellular Pertussis (TDAP): Yes - Medical/Surgical History Hx Asthma: No Hx Chronic Respiratory Disease: No Hx Diabetes: No Hx Cardiac Disease: Yes Hx Renal Disease: No Hx Cirrhosis: No Hx Alcoholism: No Hx HIV/AIDS: No Hx Splenectomy or Spleen Trauma: No Other PMH: stent x2, hyperlipidemia, anemia, gerd, h-pylori, htn, macular degenration, prostate CA - Social History Smoking Status: Never smoked - Physical Exam Exam: General Appearance: Alert, pleasant Eyes: Pupils equal and round, no conjunctival pallor or injection ENT, Mouth: Mucous membranes moist Neck: Normal inspection Respiratory: Lungs are clear to auscultation Cardiovascular: Regular rate and rhythm Gastrointestinal: Abdomen is soft and nontender Neurological: A&O, nonfocal, normal gait Skin: Warm and dry, no rash Extremities: Nontender, no pedal edema Psychiatric: Anxious Constitutional: Initial Vital Signs Temperature (C) 36.3 C 01/23/19 10:34 Heart Rate 78 01/23/19 10:34 Respiratory Rate 16 01/23/19 10:34 Blood Pressure 142/84 H 01/23/19 10:34 O2 Sat (%) 97 01/23/19 10:34 O2 Delivery Mode Room Air Allergies/Adverse Reactions: No Known Allergies Allergy (Verified 10/08/18 10:38) Home Medications: Medication Instructions Recorded Abiraterone Acetate [Zytiga] 500 mg PO BID 08/27/18 Albuterol [Proventil Inhaler HFA 2 puffs IH Q4 PRN 08/27/18 (*)] Atorvastatin Calcium [Lipitor 40 40 mg PO DAILY 08/27/18 mg (*)] Cyanocobalamin [Vitamin B12 (*)] 1,000 mcg PO DAILY 08/27/18 Escitalopram Oxalate [Lexapro 10 10 mg PO HS 08/27/18 MG] Eszopiclone 3 mg PO HS PRN 08/27/18 Gabapentin [Neurontin 100 MG (*)] 100 mg PO TID 08/27/18 Losartan Potassium [Cozaar 50 mg 50 mg PO DAILY 08/27/18 (*)] Zolpidem Tartrate [Ambien 5MG (*)] 10 mg PO HS PRN 08/27/18 guaiFENesin [Mucinex 600 MG (*)] 1,200 mg PO BID 08/27/18 predniSONE 10 mg PO DAILY 08/27/18 Fluticasone/Vilanterol [Breo 1 puffs IH DAILY 08/28/18 Ellipta 100-25 Mcg INH] Fidaxomicin [Dificid 200 MG (*)] 200 mg PO BID tab 09/13/18 PE/Shark Liver/Gly/Pet,Wh 1 hua [place] QID PRN crtube 09/13/18 [Preparation H Cream (*)] Ondansetron Odt [Zofran Odt 4 mg 4 mg PO Q4 PRN #6 tab 10/08/18 (*)] Medical Decision Making ED Course/Re-evaluation: CT scan from 01/[address] Mcclelland. Small interstitial infiltrate left upper lobe, not present on prior CT scan. Unclear if this represents pneumonia or drug effect or other etiology. Laboratory tests from 01/22/2018 reviewed; white blood cell count 9. Given the patient does not have respiratory symptoms, is afebrile and there is no leukocytosis, will hold off on antibiotics for now. He has a history of C diff colitis requiring fecal transplant. I do not feel that antibiotics are in this patient's best interest today. Decision making discussed with the patient and his . Consulted Dr. Stock, aware of pt, agrees no abx for now. Follow-up with Dr. Downey on Friday. Warning signs discussed. Departure - Departure Disposition: Home, Routine, Self-Care Clinical Impression: Fatigue Condition: Good Instructions: Fatigue (ED) Additional Instructions: Return for worsening symptoms or any concerns. Referrals: Sepideh Mckeon MD [Primary Care Provider] - As per Instructions AndJeanmarie garcia MD [Medical Doctor] - As per Instructions (Follow-up on Friday.)
== END 2019-01-23 11:28 | disposition home or self-care (01) ==
DX: R53.83 Other fatigue (principal)

== ENCOUNTER → 2019-02-05 | Outpatient (CLI) | payer OTHER, MEDICARE ==
[~2019-02-05] MED LIST changes: -IOPAMIDOL (ISOVUE-300) 100 ML BTL ONE; +LIDOCAINE 1% 300 MG/30 ML SDV ONE
== END ==
LOC: FIMAGING 08:03
PROVIDERS: ATTEND Family Medicine
PROC: 0G9K3ZX Drainage of Thyroid Gland, Percutaneous Approach, Diagnostic (ICD-10-PCS; principal; 2019-02-05)
DX: E04.2 Nontoxic multinodular goiter (principal)